=== PATIENT | female | born 2000 | race Caucasian/White ===

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

== ENCOUNTER 2021-05-05 11:22 | Emergency (ER) | payer BC, SELFPAY ==
[2021-05-05 11:34] VITALS: BP 121/68; PULSE 97; RESP 18; TEMP 36.2; O2SAT 100
--- NOTE | 2021-05-05 12:54 | ED.GENADULT ---
HPI - General Adult General Chief complaint: Unspecified Stated complaint: Covid-19 exposure Time Seen by Provider: 05/05/21 11:42 Source: patient Mode of arrival: ambulatory Limitations: no limitations History of Present Illness HPI narrative: This is a 20 year old female that presents to the ER for cold symptoms present over the last 2 days. Reports cough, congestion, rhinorrhea, and sore throat. Reports recent COVID exposure. She has vaccinated, has not received the booster. Denies fever, chest pain, shortness of breath. Related Data Home Medications Medication Instructions Recorded Confirmed drospirenone-ethinyl estradiol tablet 05/05/21 escitalopram oxalate mg 05/05/21 spironolactone 05/05/21 05/05/21 Allergies Allergy/AdvReac Type Severity Reaction Status Date / Time guaifenesin Allergy Unknown Unknown Verified 05/05/21 11:33 Review of Systems Review of Systems: CONSTITUTIONAL: Denies fever ENT: Reports rhinorrhea, congestion, sore throat CARDIOVASCULAR: Denies chest pain, or edema. RESPIRATORY: Reports cough. Denies dyspnea. All systems reviewed & are unremarkable except as noted in HPI and below PMFSH Past Medical History Medical History (Updated 05/05/21 @ 13:02 by Liv Walter PA-C) History of PCOS Social History Social History (Updated 05/05/21 @ 12:59 by Liv Walter PA-C) Smoking status: Never smoker Exam Narrative: GENERAL: Well-appearing, well-nourished, and in no acute distress. HEAD: Normocephalic, atraumatic. EYES: EOMI. ENT: Nares clear, no rhinorrhea or epistaxis. Mucous membranes moist. Oropharynx without tonsillar hypertrophy exudate or other lesions. Bilateral TMs pearly patterson non-bulging NECK: Supple. No adenopathy or masses. CHEST: Clear to auscultation. No respiratory distress. No wheezes rales or rhonchi HEART: Regular rate and rhythm. No murmur heard. Normal peripheral pulses. EXTREMITIES: Normal range of motion. No edema. SKIN: Warm, dry, no rash. NEURO: No focal deficits. Alert and oriented x3. PSYCH: Normal mood and affect Course Vital Signs Vital signs: Vital Signs Temperature 97.2 F L 05/05/21 11:34 Pulse Rate 97 05/05/21 11:34 Respiratory Rate 18 05/05/21 11:34 Blood Pressure 121/68 05/05/21 11:34 Pulse Oximetry 100 05/05/21 11:34 Temperature 97.2 F L 05/05/21 11:34 Pulse Rate 97 05/05/21 11:34 Respiratory Rate 18 05/05/21 11:34 Blood Pressure 121/68 05/05/21 11:34 Pulse Oximetry 100 05/05/21 11:34 Medical Decision Making MDM Narrative Medical decision making narrative: Patient presents emergency department for cold symptoms present x2 days. She is afebrile and nontoxic-appearing. Oxygen saturation is 100% on room air. Lungs are clear on exam. Influenza screen and strep screens are negative. SARS-CoV-2 was sent. Patient was instructed on continued care of viral infection. She is stable and felt appropriate for further outpatient evaluation. She was given warnings to return to the ER Vital Signs Vital Signs: Vital Signs Temperature 97.2 F L 05/05/21 11:34 Pulse Rate 97 05/05/21 11:34 Respiratory Rate 18 05/05/21 11:34 Blood Pressure 121/68 05/05/21 11:34 Pulse Oximetry 100 05/05/21 11:34 Temperature 97.2 F L 05/05/21 11:34 Pulse Rate 97 05/05/21 11:34 Respiratory Rate 18 05/05/21 11:34 Blood Pressure 121/68 05/05/21 11:34 Pulse Oximetry 100 05/05/21 11:34 Lab Data Lab results reviewed: Yes I reviewed the patient's lab results. Labs: Lab Results 05/05/21 Range/Units 12:12 SARS-CoV-2 RNA (RT-PCR) Pending Influenza A Screen Negative Reference Range: Negative Influenza B Screen Negative Reference Range: Negative Strep Screen Presumptive Negative *(Reference Range: Negative)*
[2021-05-05 13:17] LABS: SARS-CoV-2 RNA PCR Negative
== END 2021-05-05 13:15 | disposition home or self-care (01) ==
PROVIDERS: Physician Assistant; Emergency Provider Emergency Medicine
DX: B34.9 Viral infection, unspecified (principal); Z20.822 Contact with and (suspected) exposure to COVID-19; E28.2 Polycystic ovarian syndrome
CPT/HCPCS: 87081; 87804; 87880; 99283; C9803; U0003; U0005

== ENCOUNTER 2022-08-27 13:22 | Emergency (ER) | payer BC, SELFPAY ==
--- NOTE | ~2022-08-27 | XR_ITS ---
EXAMINATION: XR chest 2V DATE: 08/27/2022 13:48 INDICATION: Left anterior chest and left back pain. TECHNIQUE: PA and lateral views of the chest were obtained. COMPARISON: None FINDINGS: The lungs are clear with no focal airspace opacities, pulmonary edema, pleural effusion or pneumothor ax. The cardiomediastinal silhouette is normal. Visualized bones and soft tissues are unremarkable. IMPRESSION: 1. Normal chest radiograph. Reviewed, dictated and finalized at location A. IMPRESSION: 1. Normal chest radiograph.
[2022-08-27 13:29] VITALS: BP 122/61; PULSE 84; RESP 16; TEMP 36.6; O2SAT 99
--- NOTE | 2022-08-27 13:38 | ECG_ITS ---
Measurements Intervals Carey Rate: 78 P: 47 IN: 161 QRS: 30 QRSD: 79 T: 8 QT: 339 QTc: 387 Interpretive Statements SINUS RHYTHM BORDERLINE ST-T WAVE ABNORMALITY- INFERIOR LEADS BASELINE ARTIFACT- II, III, AVF BORDERLINE ECG NO PREVIOUS ECG AVAILABLE FOR COMPARISON Electronically Signed On 08-28-2022 6:27:31 CDT by Ephraim Estrella D.O.
--- NOTE | 2022-08-27 13:51 | ED.GENADULT ---
HPI - General Adult General Chief complaint: Upper Respiratory Infection Stated complaint: Left Shoulder/Back Chest Pain Source: patient Mode of arrival: ambulatory Limitations: no limitations History of Present Illness HPI narrative: PATIENT PRESENTS FOR EVALUATION BACK PAIN WITH RADIATION INTO LEFT SIDE OF THE CHEST THAT STARTED AROUND 11:00 A.M. THIS MORNING. SHE INDICATES SHE WAS STANDING IN LINE AT THE TIME OF SYMPTOM ONSET. PAIN HAS BEEN FAIRLY CONSTANT SINCE THAT TIME. NO HISTORY OF SIMILAR SYMPTOMS. SHE DENIES SOB AND COUGH. SHE STATES THAT DEEP INSPIRATION CAUSES PAIN TO INCREASE. SHE HAS TRIED TAKING IBUPROFEN FOR HER SYMPTOMS WITHOUT CONSIDERABLE IMPROVEMENT THEREAFTER. SHE APPLIED A HEATING PAD WHICH HELPED. HOWEVER HER PAIN RETURNED AFTER SHE REMOVED THE HEATING PAD. DENIES ANY OTHER INFECTIOUS SYMPTOMS INCLUDING BUT NOT LIMITED TO SORE THROAT, EAR PAIN. FEVER OR CHILLS. SHE DESCRIBES THE SENSATION A SPASM . SHE TAKES DEEPIKA OC. Related Data Home Medications Medication Instructions Recorded Confirmed drospirenone 3 mg-ethinyl tablet 05/05/21 estradiol 0.02 mg tablet escitalopram oxalate 5 mg tablet mg 05/05/21 spironolactone 100 mg tablet 05/05/21 05/05/21 dicyclomine 20 mg tablet mg 08/27/22 metformin 500 mg tablet,extended mg PO 08/27/22 release 24 hr Allergies Allergy/AdvReac Type Severity Reaction Status Date / Time guaifenesin Allergy Unknown Unknown Verified 05/05/21 11:33 Review of Systems Review of Systems: CONSTITUTIONAL: DENIES FEVER, CHILLS, OR SWEATS. EYES: DENIES VISUAL CHANGES, REDNESS, OR DISCHARGE. ENT: DENIES RHINORRHEA, CONGESTION, SORE THROAT, OR OTALGIA. CARDIOVASCULAR: DENIES CHEST PAIN, PALPITATIONS, OR EDEMA. RESPIRATORY: DENIES COUGH AND SHORTNESS OF BREATH. DEEP INSPIRATION CAUSES WORSENING BACK WELLS. GASTROINTESTINAL: DENIES ABDOMINAL PAIN, NAUSEA, VOMITING, OR DIARRHEA. GENITOURINARY: DENIES DYSURIA OR HEMATURIA. SKIN: DENIES RASH OR ITCHING. MUSCULOSKELETAL: REPORTS BACK PAIN WITH RADIATION TO LEFT SIDE OF THE CHEST NEUROLOGIC: DENIES HEADACHE, NUMBNESS, DIZZINESS, OR WEAKNESS. PSYCHIATRIC: DENIES ANXIETY OR DEPRESSION. [facility] Past Medical History Medical History History of PCOS Surgical History Surgical History History of hernia repair History of tonsillectomy Family History Family History Mother Family history non-contributory Social History Social History Smoking status: Never smoker Substance use: never Living arrangements: with family Gender identity (if verbalized by the patient): Female Spiritual care concerns: No Exam Narrative: GENERAL: WELL-APPEARING, WELL-NOURISHED, AND IN NO ACUTE DISTRESS. HEAD: NORMOCEPHALIC, ATRAUMATIC. EYES: PERRLA AND EOMI. ENT: NARES CLEAR, NO RHINORRHEA OR EPISTAXIS. MUCOUS MEMBRANES MOIST. OROPHARYNX WITHOUT TONSILLAR HYPERTROPHY EXUDATE OR OTHER LESIONS. BILATERAL TMS PEARLY LYLE NONBULGING NECK: SUPPLE. NO ADENOPATHY OR MASSES. NO CAROTID BRUITS OR JVD CHEST: CLEAR TO AUSCULTATION. NO RESPIRATORY DISTRESS. NO WHEEZES RALES OR RHONCHI HEART: REGULAR RATE AND RHYTHM. NO MURMUR HEARD. NORMAL PERIPHERAL PULSES. ABDOMEN: SOFT, NONTENDER, NONDISTENDED, NORMAL ACTIVE BOWEL SOUNDS. EXTREMITIES: NORMAL RANGE OF MOTION. NO EDEMA. BACK: THERE IS TENDERNESS OVER LEFT POSTERIOR RIBS. SKIN: WARM, DRY, NO RASH. NEURO: NO FOCAL DEFICITS. ALERT AND ORIENTED X3. PSYCH: NORMAL MOOD AND AFFECT. Course Course Emergency Course: THIS IS A 22-YEAR-OLD FEMALE WHO PRESENTED FOR EVALUATION OF PAIN IN HER BACK. CHEST X-RAY AND EKG WERE NORMAL. PAIN IS REPRODUCIBLE WITH PALPATION. LIKELY MUSCULOSKELETAL IN ORIGIN. SHE HAS EXPERIENCED RELIEF WITH APPLICATION OF HEA
== END 2022-08-27 14:14 | disposition home or self-care (01) ==
PROVIDERS: Emergency Provider Nurse Practitioner; PCP Nurse Practitioner Family
DX: M62.838 Other muscle spasm (principal); E28.2 Polycystic ovarian syndrome
CPT/HCPCS: 71046; 93005; 99213; G0463

== ENCOUNTER 2023-01-17 14:17 | Emergency (ER) | payer OTHER, SELFPAY ==
--- NOTE | ~2023-01-17 | XR_ITS ---
EXAMINATION: XR chest 2V DATE: 01/17/2023 14:57 INDICATION: Cough TECHNIQUE: PA and lateral views of the chest are obtained. COMPARISON: 08/27/2022 FINDINGS: The lungs are free of acute opacities. No pleural effusion or pneumothorax. The cardiomedia stinal silhouette is normal. The visualized bones and soft tissues are unremarkable. IMPRESSION: 1. No acute cardiopulmonary abnormality. Reviewed, dictated and finalized at location B.
[2023-01-17 14:29] VITALS: BP 122/72; PULSE 85; RESP 18; TEMP 36.8; O2SAT 98
[2023-01-17] MEDS: BENZONATATE 100 MG CAPSULE 200 MG PO (15:39)
[2023-01-17] MEDS: AZITHROMYCIN 250 MG TABLET 500 MG PO (15:39)
--- NOTE | 2023-01-17 15:48 | ED.GENADULT ---
HPI - General Adult General Chief complaint: Upper Respiratory Infection Stated complaint: cough Time Seen by Provider: 01/17/23 14:20 History of Present Illness HPI narrative: Dia Heller is a 22 y/o female who presents with reports of having a cough that has been consistent for the past 3 weeks, she states that it has been mostly dry and at times she coughs up a small amount of mucous. she denies any fever/chills. She has been tested for covid and flu and all were negative. She also states that she was treated for an ear infection from an a week ago. She also has not been taking her cough medication that was prescribed because she doesn't like to take medication Related Data Home Medications Medication Instructions Recorded Confirmed drospirenone 3 mg-ethinyl tablet 05/05/21 estradiol 0.02 mg tablet escitalopram oxalate 5 mg tablet mg 05/05/21 spironolactone 100 mg tablet 05/05/21 05/05/21 dicyclomine 20 mg tablet mg 08/27/22 metformin 500 mg tablet,extended mg PO 08/27/22 release 24 hr Allergies Allergy/AdvReac Type Severity Reaction Status Date / Time guaifenesin Allergy Unknown Unknown Verified 05/05/21 11:33 Review of Systems Review of Systems: CONSTITUTIONAL: Denies fever, chills, or sweats. EYES: Denies visual changes, redness, or discharge. ENT: Denies rhinorrhea, congestion, sore throat, or otalgia. CARDIOVASCULAR: Denies chest pain, palpitations, or edema. RESPIRATORY: Reports cough for 3 weeks without dyspnea. GASTROINTESTINAL: Denies abdominal pain, nausea, vomiting, or diarrhea. GENITOURINARY: Denies dysuria or hematuria. SKIN: Denies rash or itching. MUSCULOSKELETAL: Denies back pain, joint pain, or myalgia. NEUROLOGIC: Denies headache, numbness, dizziness, or weakness. PSYCHIATRIC: Denies anxiety or depression. [facility] Past Medical History Medical History History of PCOS Surgical History Surgical History History of hernia repair History of tonsillectomy Family History Family History Mother Family history non-contributory Social History Social History Smoking status: Never smoker Substance use: never Living arrangements: with family Gender identity (if verbalized by the patient): Female Spiritual care concerns: No Exam Narrative: GENERAL: Well-appearing, well-nourished, and in no acute distress. HEAD: Normocephalic, atraumatic. EYES: PERRLA and EOMI. ENT: Nares clear, no rhinorrhea or epistaxis. Mucous membranes moist. Oropharynx no tonsils present no exudate or other lesions. Bilateral TMs noted to have serous effusion bilaterally nonbulging NECK: Supple. No adenopathy or masses. No carotid bruits or JVD CHEST: Clear to auscultation. No respiratory distress. No wheezes rales or rhonchi HEART: Regular rate and rhythm. No murmur heard. Normal peripheral pulses. ABDOMEN: Soft, nontender, nondistended, normal active bowel sounds. EXTREMITIES: Normal range of motion. No edema. SKIN: Warm, dry, no rash. NEURO: No focal deficits. Alert and oriented x3. PSYCH: Normal mood and affect. Course Vital Signs Vital signs: Vital Signs Temperature 36.8 C 01/17/23 14:29 Pulse Rate 85 01/17/23 14:29 Respiratory Rate 18 01/17/23 14:29 Blood Pressure 122/72 01/17/23 14:29 Pulse Oximetry 98 01/17/23 14:29 Oxygen Delivery Room Air 01/17/23 14:29 Temperature 36.8 C 01/17/23 14:29 Pulse Rate 85 01/17/23 14:29 Respiratory Rate 18 01/17/23 14:29 Blood Pressure 122/72 01/17/23 14:29 Pulse Oximetry 98 01/17/23 14:29 Oxygen Delivery Room Air 01/17/23 14:29 Medical Decision Making MDM Narrative Medical decision making narrative: On exam pt's lungs are clear , TMs noted to have serous effusion bilaterall
[2023-01-17 16:05] LABS: Influenza A QL RT-PCR Negative (Negative); Influenza B QL RT-PCR Negative (Negative); RSV RNA, RT-PCR Negative (Negative); SARS-CoV-2 RNA PCR Negative (Negative)
[2023-01-17 16:20] VITALS: BP 120/75; PULSE 82; RESP 16; TEMP 36.4; O2SAT 99
== END 2023-01-17 16:20 | disposition home or self-care (01) ==
PROVIDERS: Emergency Provider Nurse Practitioner Family; PCP Nurse Practitioner Family
DX: J40 Bronchitis, not specified as acute or chronic (principal); E28.2 Polycystic ovarian syndrome; Z20.822 Contact with and (suspected) exposure to COVID-19
CPT/HCPCS: 71046; 87637; 99283; A9270

== ENCOUNTER 2023-01-29 16:22 | Emergency (ER) | payer OTHER, SELFPAY ==
--- NOTE | 2023-01-29 16:38 | ED.URI ---
HPI - URI/Sore Throat General Chief Complaint: Upper Respiratory Infection Stated Complaint: coughing/ears History of Present Illness HPI Narrative: PATIENT PRESENTS WITH BILATERAL EAR PAIN AND NASAL CONGESTION AND COUGH. NO FEVER NO SHORTNESS OF BREATH NO CHEST PAIN. PATIENT STATES SHE HAS BEEN RECENTLY ON AUGMENTIN FOR BILATERAL EAR INFECTION AND THEN A Z-VIOLET. PATIENT STATES SHE IS NOT TAKING ANYTHING [id number] FOR HER SYMPTOMS. Related Data Home Medications Medication Instructions Recorded Confirmed drospirenone 3 mg-ethinyl tablet 05/05/21 estradiol 0.02 mg tablet escitalopram oxalate 5 mg tablet mg 05/05/21 spironolactone 100 mg tablet 05/05/21 05/05/21 metformin 500 mg tablet,extended mg PO 08/27/22 release 24 hr Allergies Allergy/AdvReac Type Severity Reaction Status Date / Time guaifenesin Allergy Unknown Unknown Verified 05/05/21 11:33 Review of Systems Review of Systems: CONSTITUTIONAL: DENIES CHILLS, OR SWEATS. REPORTS FEVER AND GENERALIZED BODY ACHES EYES: DENIES VISUAL CHANGES, REDNESS, OR DISCHARGE. ENT: DENIES OTALGIA. REPORTS NASAL CONGESTION RUNNY NOSE AND SORE THROAT CARDIOVASCULAR: DENIES CHEST PAIN, PALPITATIONS, OR EDEMA. RESPIRATORY: DENIES DYSPNEA. REPORTS OCCASIONAL COUGH GASTROINTESTINAL: DENIES ABDOMINAL PAIN, NAUSEA, VOMITING, OR DIARRHEA. GENITOURINARY: DENIES DYSURIA OR HEMATURIA. SKIN: DENIES RASH OR ITCHING. MUSCULOSKELETAL: DENIES BACK PAIN, JOINT PAIN, OR MYALGIA. REPORTS GENERALIZED BODY ACHES NEUROLOGIC: DENIES HEADACHE, NUMBNESS, OR WEAKNESS. PSYCHIATRIC: DENIES ANXIETY OR DEPRESSION. [facility] Past Medical History Medical History History of PCOS Surgical History Surgical History History of hernia repair History of tonsillectomy Family History Family History Mother Family history non-contributory Social History Social History Smoking status: Never smoker Substance use: never Living arrangements: with family Gender identity (if verbalized by the patient): Female Spiritual care concerns: No Comments AT TIME OF SIGNATURE, AGREE WITH NURSING PAST MEDICAL, SURGICAL, SOCIAL AND FAMILY HISTORY. THERE IS NO RELEVANT FAMILY HISTORY PERTINENT TO THE PRESENTING COMPLAINT Exam Narrative: THE PATIENT IS A WELL-DEVELOPED, WELL-NOURISHED IN NO ACUTE DISTRESS. SKIN: SKIN IS WARM AND DRY WITHOUT ERYTHEMA, SWELLING OR EXUDATE. THERE IS GOOD TURGOR. NO TENTING. HEAD: ATRAUMATIC. NORMOCEPHALIC. NO TEMPORAL OR SCALP TENDERNESS. EYES: MOIST AND BRIGHT. SCLERA AND CONJUNCTIVAE NORMAL. NO DISCHARGE. PERRLA. EXTRAOCULAR MOTIONS INTACT. GROSS VISUAL ACUITY INTACT. EARS: PINNA IS NORMAL SHAPE AND CONTOUR. CLEAR EXTERNAL AUDITORY CANALS. TM PEARLY CAMPBELL WITH GOOD CONE OF LIGHT, NO ERYTHEMA OR SUPPURATION. BILATERAL CERUMEN NOTED NO GROSS HEARING DEFICIT. NOSE: PINK, MOIST MUCOSA WITH GOOD AIR MOVEMENT. CLEAR RHINORRHEA WITHOUT NASAL FLARING. SEPTUM MIDLINE. MOUTH: MOIST MUCOUS MEMBRANES. THROAT; MILD ERYTHEMA NOTED TO POSTERIOR OROPHARYNX WITH MODERATE POSTNASAL DRAINAGE. WITHOUT EXUDATE OR ULCERATION.. UVULA MIDLINE. NORMAL MOVEMENT OF SOFT PALATE. NECK: SUPPLE AND NONTENDER WITH FULL RANGE OF MOTION WITHOUT DISCOMFORT. NO MENINGEAL SIGNS. LUNGS: EQUAL AND BILATERAL BREATH SOUNDS WITHOUT WHEEZES, RALES OR RHONCHI. CHEST: THE CHEST WALL IS WITHOUT RETRACTIONS OR USE OF ACCESSORY MUSCLES. HEART: HAS A REGULAR RATE AND RHYTHM WITHOUT MURMUR, GALLOPS, CLICK OR RUB. ABDOMEN: SOFT, NONTENDER WITH POSITIVE ACTIVE BOWEL SOUNDS. NO REBOUND TENDERNESS. EXTREMITIES: WITHOUT CYANOSIS, CLUBBING OR EDEMA. EQUAL 2+ DISTAL PULSES AND 2 SECOND CAPILLARY REFILL NOTED. NEUROLOGIC: ALERT, ACTIVE, . THE PATIENT MOVES ALL EXTREMITIES WITH NORMAL MUSCLE STRENGTH. NORMAL MUSCLE T
[2023-01-29 16:52] VITALS: BP 129/68; PULSE 95; RESP 16; TEMP 36.7; O2SAT 100
== END 2023-01-29 16:58 | disposition home or self-care (01) ==
PROVIDERS: Emergency Provider Nurse Practitioner Family; PCP Nurse Practitioner Family
DX: H69.92 Unspecified Eustachian tube disorder, left ear (principal); J06.9 Acute upper respiratory infection, unspecified
CPT/HCPCS: 99213; G0463

== ENCOUNTER 2023-05-09 19:15 | Emergency (ER) | payer OTHER, SELFPAY ==
[2023-05-09 19:20] VITALS: BP 104/68; PULSE 114; RESP 20; TEMP 37.2; O2SAT 99
--- NOTE | 2023-05-09 19:22 | ED.GENADULT ---
HPI - General Adult General Stated complaint: sinus headache/fever/chest congest Source: patient, RN notes reviewed and old records reviewed Mode of arrival: ambulatory Limitations: no limitations History of Present Illness HPI narrative: 22-year-old female presents to [facility] with complaints fever, myalgia, fatigue, congestion, scratchy throat, bilateral ear pressure this started last p.m. Patient taking [id number] medications with no relief. MD complaint: Fever Onset (ago): day(s) (1) Related Data Home Medications Medication Instructions Recorded Confirmed spironolactone 100 mg tablet 100 mg PO DAILY 05/05/21 05/09/23 metformin 500 mg tablet,extended 500 mg PO DAILY 08/27/22 05/09/23 release 24 hr ferrous gluconate 324 mg (38 mg 324 mg PO BID 05/09/23 05/09/23 iron) tablet norethindrone 1 mg-ethinyl 1 tablet PO DAILY 05/09/23 05/09/23 estradiol 20 mcg (21)-iron 75 mg (7) tablet (Blisovi Fe 05/19 (28)) pantoprazole 40 mg tablet,delayed 40 mg PO DAILY 05/09/23 05/09/23 release Allergies Allergy/AdvReac Type Severity Reaction Status Date / Time guaifenesin Allergy Unknown Unknown Verified 05/09/23 19:34 Review of Systems Constitutional: Constitutional: Reports no additional constitutional complaints, Reports body ache(s), Denies chills, Reports fatigue, Reports fever(s) and Reports headache(s) Eyes: Eyes: Reports no additional eye complaints and Denies blurry vision ENT: Reports system reviewed and no additional complaints, except as documented, Denies vertigo, Denies dizziness, Denies ear discharge, Reports otalgia, Denies facial pain, Denies headache(s), Reports nasal congestion, Reports nasal discharge, Denies sinus pain, Denies sinus pressure and Reports sore throat Cardiovascular: Cardiovascular: Reports no additional cardiovascular complaints, Denies chest pain, Denies chest pain at rest, Denies rapid heart rate and Denies dyspnea Respiratory: Respiratory: Reports no additional respiratory complaints, Denies chest congestion, Reports cough, Denies pain on inspiration, Denies pain with cough and Denies dyspnea Gastrointestinal: Gastrointestinal: Denies abdominal pain, Denies diarrhea, Denies nausea and Denies vomiting Integumentary/Breasts: Skin/Breast: Denies rash Neurologic: Reports system reviewed and no additional complaints, except as documented, Denies vertigo, Denies dizziness and Denies headache(s) Endocrine: Endocrine: Denies fatigue PMFSH Past Medical History Medical History History of PCOS Surgical History Surgical History History of hernia repair History of tonsillectomy Family History Family History Mother Family history non-contributory Social History Social History Smoking status: Never smoker Substance use: never Living arrangements: with family Gender identity (if verbalized by the patient): Female Spiritual care concerns: No Comments At the time of my signature, I reviewed and agree with the nursing past medical, surgical, social, and family history. There is no relevant family history pertinent to the patient complaint. Exam Const: General: cooperative, healthy appearing, no acute distress and well nourished Nutritional Appearance: well nourished Orientation/consciousness: patient oriented x3 Limitations: no limitations HENMT: Head: normal to inspection and normocephalic Ears: external ears normal, TM's normal bilaterally, mastoids normal and Abnormal EAC present Face/Nose/Sinus: normal facial exam Face and sinus: normal facial exam Mouth: Yes Normal oral and palatal mucosa present, Yes oropharynx normal and Yes moist mucous membranes Throat: tonsils normal, uvula midline and no uvular edema Eyes: General: appeara
== END 2023-05-09 19:40 | disposition home or self-care (01) ==
PROVIDERS: Emergency Provider Registered Nurse; PCP Nurse Practitioner Family
DX: J10.1 Influenza due to other identified influenza virus with other respiratory manifestations (principal); Z79.899 Other long term (current) drug therapy; Z79.84 Long term (current) use of oral hypoglycemic drugs; Z20.822 Contact with and (suspected) exposure to COVID-19
CPT/HCPCS: 87426; 87804; 99213; G0463

== ENCOUNTER 2023-06-04 10:07 | Emergency (ER) | payer OTHER, SELFPAY ==
--- NOTE | ~2023-06-04 | CT_ITS ---
EXAMINATION: CT brain wo con DATE: 06/04/2023 11:37 INDICATION: Headache TECHNIQUE: Computed tomography (CT) of the head was performed without intravenous contrast. The mA wa s adjusted according to patient size. Iterative reconstruction technique was employed. Exam dose: 83 2.33 mGy-cm total exam DLP. COMPARISON: None FINDINGS: Examination is limited due to motion artifact despite some repeat images. No intracranial mass lesion or hemorrhage or cerebrovascular accident, midline shift or mass effect i s evident. Normal ventricular size. No subdural or epidural hematoma is detected. No apparent skull fracture. Included paranasal sinuses and the mastoid air cells are unremarkable. IMPRESSION: Limited examination due to motion artifact; no acute intracranial finding is evident Reviewed, dictated and finalized at [facility]. Reviewed, dictated and finalized at location [facility]. [employer]
[2023-06-04 10:27] VITALS: BP 139/73; PULSE 88; RESP 16; TEMP 36.8; O2SAT 99
[2023-06-04] MEDS: PROCHLORPERAZINE EDISYLATE 10 MG/2 ML VIAL IV PUSH (11:57)
[2023-06-04] MEDS: diphenhydrAMINE HCl INJ 50 MG/ML VIAL 25 MG IV PUSH (11:57)
[2023-06-04] MEDS: SODIUM CHLORIDE 0.9% IV 1,000 ML 999 ML IV CONT (11:58)
--- NOTE | 2023-06-04 13:06 | ED.GENADULT ---
HPI - General Adult General Chief complaint: Headache Stated complaint: HEADACHE [id number] Time Seen by Provider: 06/04/23 11:12 History of Present Illness HPI narrative: 22-year-old female presenting the emergency department for evaluation intermittent headache. Patient reports over the last 3 weeks she has had intermittent headache. Patient states that initially started on the left and then moved to the right. Patient does describe a fullness in her ears. Patient denies any associated numbness or weakness. Patient denies any falls or injuries. Patient denies any fevers or illness. Related Data Home Medications Medication Instructions Recorded Confirmed spironolactone 100 mg tablet 100 mg PO DAILY 05/05/21 05/09/23 metformin 500 mg tablet,extended 500 mg PO DAILY 08/27/22 05/09/23 release 24 hr ferrous gluconate 324 mg (38 mg 324 mg PO BID 05/09/23 05/09/23 iron) tablet norethindrone 1 mg-ethinyl 1 tablet PO DAILY 05/09/23 05/09/23 estradiol 20 mcg (21)-iron 75 mg (7) tablet (Blisovi Fe 05/19 (28)) pantoprazole 40 mg tablet,delayed 40 mg PO DAILY 05/09/23 05/09/23 release Allergies Allergy/AdvReac Type Severity Reaction Status Date / Time guaifenesin Allergy Unknown Unknown Verified 05/09/23 19:34 Review of Systems Review of Systems: All systems reviewed & are unremarkable except as noted in HPI and below PMFSH Past Medical History Medical History History of PCOS Surgical History Surgical History History of hernia repair History of tonsillectomy Family History Family History Mother Family history non-contributory Social History Social History Smoking status: Never smoker Substance use: never Living arrangements: with family Gender identity (if verbalized by the patient): Female Spiritual care concerns: No Exam Narrative: APPEARANCE: Well appearing, no pain, no distress, well-nourished. HEAD: normocephalic, atraumatic. EYES: PERRLA/EOMI, conjunctivae clear. NOSE: Normal no drainage EARS:TMS clear with good light reflex. THROAT: Pharynx clear, no exudate. NECK: Supple. No adenopathy, no masses. RESPIRATORY: Airway patent, respirations nonlabored. Clear to auscultation bilaterally, no rales, rhonchi, wheezing. CARDIOVASCULAR: Regular rate and rhythm without murmurs rubs or gallops. ABDOMINAL: Soft, nontender, nondistended, normal bowel sounds MUSCULOSKELETAL: Moves all extremities. Strength/ROM intact, No edema, No calf tenderness. NEURO: Alert. Cranial nerves II through XII intact. Normal strength reflexes, no ataxia, no drift, negative Romberg, normal for him backward tandem gait SKIN: Warm, dry. Normal Color PSYCHIATRIC: Normal affect/mood. Course Course Emergency Course: 22-year-old female present to the emergency department for evaluation for headache. Head CT was negative and patient did feel improved with treatment. Patient was encouraged to have close follow-up with her primary care physician. All questions concerns were addressed. Vital Signs Vital signs: Vital Signs Temperature 98.2 F 06/04/23 10:27 Pulse Rate 88 06/04/23 10:27 Respiratory Rate 16 06/04/23 10:27 Blood Pressure 139/73 06/04/23 10:27 Pulse Oximetry 99 06/04/23 10:27 Oxygen Delivery Room Air 06/04/23 10:27 Temperature 98.2 F 06/04/23 10:27 Pulse Rate 102 H 06/04/23 13:42 Respiratory Rate 18 06/04/23 13:42 Blood Pressure 116/65 06/04/23 13:42 Pulse Oximetry 100 06/04/23 13:42 Oxygen Delivery Room Air 06/04/23 10:27 Medical Decision Making Differential Diagnosis Differential Diagnosis: Tension headache, migraine, intracranial abnormality, acute headache Vital Signs Vital Signs: Vital Signs Temperature 98.2 F
[2023-06-04 13:42] VITALS: BP 116/65; PULSE 102; RESP 18; O2SAT 100
== END 2023-06-04 13:25 | disposition home or self-care (01) ==
PROVIDERS: Emergency Provider Emergency Medicine; PCP Nurse Practitioner Family
DX: R51.9 Headache, unspecified (principal); E28.2 Polycystic ovarian syndrome
CPT/HCPCS: 70450; 81025; 96361; 96374; 96375; 99284; J0780; J1200; J7030

== ENCOUNTER 2023-07-16 10:28 | Emergency (ER) | payer OTHER, SELFPAY ==
[2023-07-16 10:35] VITALS: BP 133/79; PULSE 114; RESP 16; TEMP 37.6; O2SAT 99
--- NOTE | 2023-07-16 10:58 | ED.URI ---
HPI - URI/Sore Throat General Chief Complaint: Upper Respiratory Infection Stated Complaint: flu symptoms Time Seen by Provider: 07/16/23 10:50 Source: patient, RN notes reviewed and old records reviewed Mode of arrival: ambulatory Limitations: no limitations History of Present Illness HPI Narrative: 22 year old female who presents to [facility] care with complaints of runny nose nasal congestion and fever up to 100.5 since Sunday. Patient reports that that she has been taking Sudafed and Ibuprofen for her symptoms. Patient reports that she had the flu in April and she works in a day care setting. MD elicited complaint: fever, cough, rhinorrhea, nasal congestion and sinus pain Onset (ago): day(s) (4) Pain scale (0-10): 3 Description of mucous: clear Able to tolerate fluids by mouth: Yes Treatments prior to arrival: ibuprofen and other (Sudafed) Related Data Home Medications Medication Instructions Recorded Confirmed ferrous gluconate 324 mg (38 mg 324 mg PO BID 05/09/23 07/16/23 iron) tablet norethindrone 1 mg-ethinyl 1 tablet PO DAILY 05/09/23 07/16/23 estradiol 20 mcg (21)-iron 75 mg (7) tablet ([place] Fe 05/19 (28)) escitalopram oxalate 5 mg tablet 5 mg PO DAILY 07/16/23 07/16/23 Allergies Allergy/AdvReac Type Severity Reaction Status Date / Time guaifenesin Allergy Unknown Unknown Verified 05/09/23 19:34 Review of Systems Review of Systems: CONSTITUTIONAL: Reports malaise, chills, sweats, or fever. EYES: Denies visual changes, redness, or discharge. ENT: Reports rhinorrhea, congestion, sinus pain,no otalgia and no sore throat. CARDIOVASCULAR: Denies chest pain, palpitations, or edema. RESPIRATORY: Reports occasional cough.? Denies dyspnea. GASTROINTESTINAL: Denies abdominal pain, nausea, vomiting, diarrhea SKIN: Denies rash or itching. MUSCULOSKELETAL: Denies myalgia. NEUROLOGIC: Denies headache. All systems reviewed & are unremarkable except as noted in HPI and below PMFSH Past Medical History Medical History History of PCOS Surgical History Surgical History History of hernia repair History of tonsillectomy Family History Family History Mother Family history non-contributory Social History Social History Smoking status: Never smoker Substance use: never Living arrangements: with family Gender identity (if verbalized by the patient): Female Spiritual care concerns: No Comments At time of signature, agree with nursing past medical, surgical, social and family history. There is no relevant family history pertinent to the presenting complaint Exam Narrative: GENERAL: Well-appearing, well-nourished, and in no acute distress. HEAD: Normocephalic EYES: PERRLA, conjunctivae clear ENT: Nares clear, turbinates edematous and erythematous, clear discharge. Mucous membranes moist. TM pearly patterson with dull light reflex bilaterally; no tragal tenderness. Oropharynx erythematous without lesions. Tonsils not present and throat without exudate, no drooling, no hoarseness, no trismus, uvula midline, post nasal drainage. NECK: Supple. No lymphadenopathy CHEST: Clear to auscultation, breath sounds equal. No wheezing, rhonchi, rales, or stridor. No respiratory distress, speaks in full sentences. SAO2 99% on room air HEART: Regular rate and rhythm. No murmur heard. SKIN: Warm, dry, no rash. NEURO: Alert and oriented x3. PSYCH: Normal mood and affect Course Course Emergency Course: Patient is aware of diagnosis, understands and agrees to treatment plan.? Anticipatory guidance given.? Patient agrees to follow-up as directed and is aware of reasons to seek care at the emergency department. Portions of this record may have been created wit
== END 2023-07-16 11:20 | disposition home or self-care (01) ==
PROVIDERS: Emergency Provider Registered Nurse; PCP Nurse Practitioner Family
DX: J06.9 Acute upper respiratory infection, unspecified (principal); Z20.822 Contact with and (suspected) exposure to COVID-19; E28.2 Polycystic ovarian syndrome
CPT/HCPCS: 87426; 87804; 99213; G0463

== ENCOUNTER 2024-03-10 16:09 | Emergency (ER) | payer OTHER, SELFPAY ==
[2024-03-10 16:14] VITALS: BP 136/68; PULSE 106; RESP 18; TEMP 36.9; O2SAT 100
--- NOTE | 2024-03-10 16:18 | ED_ITS ---
HPI - Female Genitourinary General Chief complaint: Abdominal Pain Stated complaint: Pain in lower back and right side Source: patient and RN notes reviewed Mode of arrival: ambulatory Limitations: no limitations History of Present Illness HPI Narrative: 23 y/o female presented for c/o abdominal cramping to right abdomen x5 days. Now radiating to the right mid back today. Reports one week prior to onset she had d iarrhea which has resolved. Taking gas X; has not taken anything for pain. denies hematuria, nausea, vomiting, constipation, fevers or chills. LBM today, normal. Related Data Home Medications Medication Instructions Recorded Confirmed ferrous gluconate 324 mg (38 mg 324 mg PO BID 05/09/23 03/10/24 iron) tablet escitalopram oxalate 5 mg tablet 5 mg PO DAILY 07/16/23 03/10/24 Allergies Allergy/AdvReac Type Severity Reaction Status Date / Time guaifenesin Allergy Unknown Unknown Verified 03/10/24 16:35 Review of Systems Review of Systems: CONSTITUTIONAL: Denies body aches, fever, chills, or sweats. CARDIOVASCULAR: Denies chest pain, palpitations, or edema. RESPIRATORY: Denies cough or dyspnea. GASTROINTESTINAL: reports abdominal pain, Denies nausea, vomiting, or diarrhea. GENITOURINARY:denies dysuria, frequency, urgency, hematuria, reports flank pain SKIN: Denies rash PMFSH Past Medical History Medical History History of PCOS Surgical History Surgical History History of hernia repair History of tonsillectomy Family History Family History Mother Family history non-contributory Social History Social History Smoking status: Never smoker Substance use: never Living arrangements: with family Gender identity (if verbalized by the patient): Female Spiritual care concerns: No Comments At time of signature, I have reviewed and agree with nursing past medical, surgical, social and family history unless otherwise noted. Please see nursing chart for further information. There is no relevant family history pertinent to the presenting complaint Exam Narrative: GENERAL: Well-appearing ENT: Mucous membranes pink and moist. CHEST: No respiratory distress. Clear to auscultation. HEART: Regular rate and rhythm. ABDOMEN: Soft, nondistended, normal active bowel sounds. Mild right CVA tenderness, RUQ and RLQ abdominal tenderness with palpation. SKIN: Warm, dry, no rash. NEURO: No focal deficits. Alert and oriented x3. Gait steady. PSYCH: Normal affect. Course Course Emergency Course: Patient is aware of diagnosis, understands and agrees to treatment plan. Anticipatory guidance given. Patient agrees to follow-up as directed and is aware of reasons to seek care at the emergency department. Portions of this record may have been created with voice recognition software Level of Care: Express Care Visit Vital Signs Vital signs: Reviewed Transfer Transfered to: [facility] Transportation: Other ( Private vehicle) Transfer rationale: Pt is agreeable to transfer. Requests transfer to [facility] via private vehicle. Risks of transportation reviewed with pt including injury, worsening of condition and . v/u. will be driving pt; Report called to hospital, spoke with Romi JOSEPH, accepting physician. Pt is in stable condition at time of transfer. Advised to remain NPO and go directly to the hospital. MDM - Female Genitourinary MDM Narrative Medical decision making narrative: Patient reports abdominal pain and flank pain, Urine neg, neg preg. Pt elects to transfer to ER at this time for further evaluation. Differential Diagnosis Differential diagnosis: Likely urinary tract infection and other (renal colic, renal stone, pyelonephritis, musculoskeletal strain, gallbladder disease, PUD, appendicitis, pancreatitis, hepatitis, pyelonephritis, renal stone, GERD, bowel obstruction, ) Discharge Plan Discharge Clinical Impression: Abdominal pain Patient Disposition: Acute Care Hospital Condition: Stable Prescriptions: No Action ferrous gluconate 324 mg (38 mg iron) tablet 324 mg PO BID escitalopram oxalate 5 mg tablet 5 mg PO DAILY Follow-up/Referrals: Ramon,Annette Owen APRN [Primary Care Provider] - Time of Disposition: 17:05
[2024-03-10 16:38] LABS: BEDSIDEPREGUCG Negative (Negative); EDUAAPPEAR Clear; EDUABILI Negative (Negative); EDUABLOOD Negative (Negative); EDUACOLOR1 Yellow; EDUAGLUCOSE Negative (Negative); EDUAKETONE Negative (Negative); EDUALEUKO Negative (Negative); EDUANITRATE Negative (Negative); EDUAPH 6.5; EDUAPROTEIN Negative (Negative); EDUASPGRAVITY 1.025
== END 2024-03-10 17:00 | disposition short-term general hospital (02) ==
PROVIDERS: Emergency Provider Nurse Practitioner Family; PCP Nurse Practitioner Family
DX: R10.11 Right upper quadrant pain (principal); R10.12 Left upper quadrant pain; R10.9 Unspecified abdominal pain; E28.2 Polycystic ovarian syndrome
CPT/HCPCS: 81003; 81025; 87086; 99213; G0463

== ENCOUNTER 2024-03-10 17:45 | Emergency (ER) | payer OTHER, SELFPAY ==
--- NOTE | ~2024-03-10 | CT_ITS ---
CLINICAL INDICATION: Upper abdominal pain radiating to the right flank COMPARISON: None. TECHNIQUE: Multiple contiguous axial images of the abdomen and pelvis were performed following the ad ministration of with 100 mL Omnipaque-350 intravenous contrast The dose-length product (DLP) was 501.68 mGy-cm. Automated exposure control and iterative reconstruction technique were employed. FINDINGS/OBSERVATIONS: Visualized lower thorax: Multiple pulmonary nodules are identified. 4.4 mm, right middle lobe (axial series, image 11). 5.7 mm, superior segment right lower lobe (axial series, image 23) possibly an intrafissural lymph no de. 5.8 mm, right middle lobe (axial series, image 5). The remainder of the lung bases are clear. The heart is of normal size, without pericardial effusion. Liver: The liver is enlarged measuring 19 cm in longitudinal dimension. Decreased attenuation suggesting fatty infiltration. Gallbladder and biliary system: The gallbladder is only minimally distended, and otherwise unremarkable. Pancreas: The pancreas enhances homogeneously without ductal dilatation. Spleen: The spleen enhances homogeneously and is not enlarged measuring 8 cm in longitudinal dimension. Kidneys: The bilateral kidneys enhance symmetrically without hydronephrosis or renal calculi. Adrenal glands: Unremarkable. Gastrointestinal tract: Mild fecal stasis. Appendix: The air-filled appendix is of normal caliber (axial series, images 116-126) Vasculature: Unremarkable. Lymph nodes: Multiple prominent lymph nodes within the retroperitoneum and at the root of the mesentery, a nonspec ific finding in a patient of this age. Pelvic structures: The bladder is minimally distended, and otherwise unremarkable. The bilateral ovaries are enlarged, and demonstrate decreased attenuation. The right ovary measures 4 .6 x 3.3 x 5 cm. The left ovary measures 4.2 x 3.5 x 5 cm. The uterus is anteverted and anteflexed. Body wall and musculoskeletal: No significant degenerative disease within the lower thoracic or lumbosacral spine. IMPRESSION: Fatty infiltration of an enlarged liver. Findings within the bilateral ovaries for which ultrasound is recommended. No obstructive uropathy. Reviewed, dictated and finalized at location [facility]. [employer] [employer]
--- NOTE | ~2024-03-10 | US_ITS ---
EXAM: PELVIC ULTRASOUND HISTORY: Abnormal CT. COMPARISON: CT examination of the abdomen and pelvis dated 03/10/2024 FINDINGS: UTERUS: 7.2 x 3.7 x 4.2 cm. The uterus is anteverted and anteflexed. The endometrial complex measures 5 mm. RIGHT OVARY: The right ovary is within the upper limits of normal for size measuring 4.4 x 3.1 x 3.7 cm. Arterial and venous flow are identified. Multiple follicles are present, consistent with patient's history of PCOS. LEFT OVARY: The left ovary is within the upper limits of normal for size measuring 4.9 x 2.3 x 3.6 cm Both arterial and venous flow are identified. Multiple follicles are present, consistent with patient's history of PCOS. No free fluid is identified within the pelvis. IMPRESSION: Findings consistent with patient's history of PCOS, as detailed above Reviewed, dictated and finalized at location A. [employer]
[2024-03-10 17:46] VITALS: BP 138/70; PULSE 112; RESP 16; TEMP 36.9; O2SAT 100
[2024-03-10 18:19] LABS: BEDSIDEPREGUCG Negative (Negative)
[2024-03-10 18:23] LABS: Basophils Percent Auto 0.4 % (0.2-1.2); Eosinophils Absolute Auto 0.2 K/mm3 (0-0.3); Eosinophils Percent Auto 1.4 % (0-4.4); Hematocrit 42.9 % (37.0-47.0); Hemoglobin 14.8 g/dL (12.0-15.0); Immature Granulocyte Absolute 0.03 K/mm3 (0.00-0.031); Immature Granulocyte Percent A 0.3 % (0-0.5); Lymphocytes Absolute Auto 2.72 K/mm3 (0.9-3.2); Lymphocytes Percent Auto 25.4 % (18.3-44.2); Mean Corpuscular HGB Conc 34.5 g/dl (32-36); Mean Corpuscular Hemoglobin 27.8 pg (26-34); Mean Corpuscular Volume 80.5 fl (80-100); Mean Platelet Volume 9.6 fl (7.4-10.4); Monocytes Absolute Auto 0.6 K/mm3 (0.1-0.6); Neutrophils Absolute Auto 7.1 K/mm3 (1.3-6.7); Neutrophils Percent Auto 66.5 % (45.5-73.1); Platelet Count Result 310 k/mm3 (150-375); Red Blood Count 5.33 M/mm3 (4.2-5.4); Red Cell Distribution Width 13.3 % (11.5-14.5); White Blood Count 10.7 K/mm3 (4.5-10.0)
[2024-03-10 18:25] LABS: Add Urine Microscopic? NO; Appearance Urine Clear (Clear); Bilirubin Urine Negative (Negative); Blood Urine Negative (Negative); Color Urine Yellow (Yellow); Glucose Urine UA Negative (Negative); Ketones Urine Negative (Negative); Leukocyte Esterase Ur Negative LEU/UL (Negative); Nitrate Urine Negative (Negative); Protein Urine Negative (Negative); Specific Grav Ur 1.004 (1.001-1.035); Urobilinogen Urine 0.2 mg/dL (<2.0)
[2024-03-10 18:33] LABS: Alanine Aminotransferase 80 U/L (6-35); Albumin Level 4.7 g/dL (3.5-5.1); Alkaline Phosphatase 108 U/L (38-126); Anion Gap 12 mmol/L (4-12); Aspartate Amino Transferase 45 U/L (14-36); Bilirubin,Total 1.1 mg/dL (0.2-1.3); Blood Urea Nitrogen 11 mg/dL (7-17); Calcium 9.2 mg/dL (8.4-10.2); Carbon Dioxide 24 mmol/L (22-30); Chloride 105 mmol/L (98-107); Estimated CRCL calculation 90 ml/min; Estimated Glomerular Filt Rate > 60; Glucose 109 mg/dL (65-110); Lipase 107 U/L (23-300); Potassium 3.6 mmol/L (3.4-5.0); Sodium 141 mmol/L (137-145)
--- NOTE | 2024-03-10 19:51 | ED.GENADULT ---
HPI - General Adult General Chief complaint: Abdominal Pain Stated complaint: abd pain Time Seen by Provider: 03/10/24 18:17 History of Present Illness HPI narrative: patient is a 23-year-old female presents emergency department chief complaint of abdominal pain. Patient reports that she has had a stomach flu recently and had diarrhea patient reports that she now has pain in the right flank area and reports that she has abdominal cramping. The patient states her pain is doing better at this time but reports that she is concerned Related Data Home Medications Medication Instructions Recorded Confirmed ferrous gluconate 324 mg (38 mg 324 mg PO BID 05/09/23 03/10/24 iron) tablet escitalopram oxalate 5 mg tablet 5 mg PO DAILY 07/16/23 03/10/24 Allergies Allergy/AdvReac Type Severity Reaction Status Date / Time guaifenesin Allergy Unknown Unknown Verified 03/10/24 16:35 Review of Systems Review of Systems: A 10 system review of systems was completed on the patient and is negative except for what is stated in the HPI. Nursing and ancillary documentation was reviewed. [facility] Past Medical History Medical History History of PCOS Surgical History Surgical History History of hernia repair History of tonsillectomy Family History Family History Mother Family history non-contributory Social History Social History Smoking status: Never smoker Substance use: never Living arrangements: with family Gender identity (if verbalized by the patient): Female Spiritual care concerns: No Exam Narrative: GENERAL: Well-appearing, well-nourished, and in no acute distress. HEAD: Normocephalic, atraumatic. EYES: PERRLA and EOMI. ENT: Nares clear, no rhinorrhea or epistaxis. Mucous membranes moist. NECK: Supple. CHEST: Clear to auscultation. No respiratory distress. HEART: Regular rate and rhythm. No murmur heard. Normal peripheral pulses. ABDOMEN: Soft, nontender, nondistended, normal active bowel sounds. EXTREMITIES: Normal range of motion. No edema. SKIN: Warm, dry, no rash. NEURO: No focal deficits. Alert and oriented x3. PSYCH: Normal mood and affect. Course Vital Signs Vital signs: Vital Signs Temperature 36.9 C 03/10/24 17:46 Pulse Rate 112 H 03/10/24 17:46 Respiratory Rate 16 03/10/24 17:46 Blood Pressure 138/70 03/10/24 17:46 Pulse Oximetry 100 03/10/24 17:46 Temperature 36.6 C 03/10/24 20:29 Pulse Rate 117 H 03/10/24 20:29 Respiratory Rate 16 03/10/24 20:29 Blood Pressure 121/72 03/10/24 20:29 Pulse Oximetry 100 03/10/24 20:29 Medical Decision Making MDM Narrative Medical decision making narrative: differential diagnosis includes abdominal infection, gastritis, colitis, appendicitis, ovarian torsion CT scan of the abdomen pelvis showed irregularly reviews of the ovaries and demonstrated fatty infiltration of liver. Vital Signs Vital Signs: Vital Signs Temperature 36.9 C 03/10/24 17:46 Pulse Rate 112 H 03/10/24 17:46 Respiratory Rate 16 03/10/24 17:46 Blood Pressure 138/70 03/10/24 17:46 Pulse Oximetry 100 03/10/24 17:46 Temperature 36.6 C 03/10/24 20:29 Pulse Rate 117 H 03/10/24 20:29 Respiratory Rate 16 03/10/24 20:29 Blood Pressure 121/72 03/10/24 20:29 Pulse Oximetry 100 03/10/24 20:29 Lab Data 03/10/24 18:15 03/10/24 18:15 Labs: Lab Results 03/10/24 03/10/24 Range/Units 18:15 18:18 WBC 10.7 H (4.5-10.0) K/mm3 RBC 5.33 (4.2-5.4) M/mm3 Hgb 14.8 (12.0-15.0) g/dL Hct 42.9 (37.0-47.0) % MCV 80.5 (80-100) fl MCH 27.8 (26-34) pg MCHC 34.5 (32-36) g/dl RDW 13.3 (11.5-14.5) % Plt Count 310 (150-375) k/mm3 MPV 9.6 (7.4-10.4) fl Immature Gran % (Auto) 0.3 (0-0.5) % Neut % (Auto) 66.5 (45.5-73.1) % Lymph % (Auto) 25.4 (18.3-44.2) % [place] % (Auto) 6.0 (2.6-8.5) % Eos % (Auto) 1.4 (0-4.4) % Baso % (Auto) 0.4 (0.2-1.2) % Lymph # (Auto) 2.72 (0.9-3.2) K/mm3 [place] # (Auto) 0.6 (0.1-0.6) K/mm3 Eos # (Auto) 0.2 (0-0.3) K/mm3 Baso # (Auto) 0.0 (0.0-0.1) K/mm3 Abs Immat Gran (auto) 0.03 (0.00-0.031) K/mm3 Absolute Neuts (auto) 7.1 H (1.3-6.7) K/mm3 Absolute Nucleated RBC 0.000 (0.0-0.012) K/mm3 Nucleated RBC % 0.0 (0.0-0.2) % Sodium 141 (137-145) mmol/L Potassium 3.6 (3.4-5.0) mmol/L Chloride 105 (98-107) mmol/L Carbon Dioxide 24 (22-30) mmol/L Anion Gap 12 (4-12) mmol/L BUN 11 (7-17) mg/dL Creatinine 0.90 (0.7-1.0) mg/dL Estim Creat Clear Calc 90 ml/min Estimated GFR > 60 (59 - ) Glucose 109 (65-110) mg/dL Calcium 9.2 (8.4-10.2) mg/dL Total Bilirubin 1.1 (0.2-1.3) mg/dL AST 45 H (14-36) U/L ALT 80 H (6-35) U/L Alkaline Phosphatase 108 (38-126) U/L Total Protein 8.0 (6.3-8.2) g/dL Albumin 4.7 (3.5-5.1) g/dL Lipase 107 (23-300) U/L Urine Color Yellow (Yellow) Urine Appearance Clear (Clear) Urine pH 7.0 (5.0-9.0) Ur Specific [place] 1.004 (1.001-1.035) Urine Protein Negative (Negative) mg/dL Urine Glucose (UA) Negative (Negative) mg/dL Urine Ketones Negative (Negative) mg/dL Ur Blood (Man) Negative (Negative) Urine Nitrate Negative (Negative) Urine Bilirubin Negative (Negative) Urine Urobilinogen 0.2 (<2.0) mg/dL Leukocyte Esterase Rfl Negative (Negative) MERCEDES/UL POC Urine HCG, Qual Negative (Negative) Discharge Plan Discharge Clinical Impression: Abdominal pain Patient Disposition: Home, Self-Care Condition: Stable Instructions: Antibiotic Form, Abdominal Pain (ED) Prescriptions: No Action ferrous gluconate 324 mg (38 mg iron) tablet 324 mg PO BID escitalopram oxalate 5 mg tablet 5 mg PO DAILY Follow-up/Referrals: Ramon,Annette Owen APRN [Primary Care Provider] - Time of Disposition: 21:51
[2024-03-10 20:29] VITALS: BP 121/72; PULSE 117; RESP 16; TEMP 36.6; O2SAT 100
[2024-03-10 21:55] VITALS: BP 125/86; PULSE 82; RESP 16; TEMP 36.6; O2SAT 100
== END 2024-03-10 22:03 | disposition home or self-care (01) ==
PROVIDERS: Physician Assistant; Emergency Provider Emergency Medicine; PCP Nurse Practitioner Family
DX: R10.9 Unspecified abdominal pain (principal); E28.2 Polycystic ovarian syndrome
CPT/HCPCS: 36415; 74177; 76856; 80053; 81003; 81025; 83690; 85025; 99284; Q9967

== ENCOUNTER 2024-10-15 14:27 | Outpatient (CLI) | payer OTHER, SELFPAY ==
--- NOTE | ~2024-10-15 | US_ITS ---
Pelvic ultrasound EXAM: PELVIC ULTRASOUND HISTORY: suprapubic abdominal pain COMPARISON: 03/10/2024. FINDINGS: UTERUS: 8.6 x 3.3 x 4.6 cm. The uterus is anteverted and anteflexed. The endometrial complex measures 3.6 mm. RIGHT OVARY: The right ovary is increased in size measuring 4.6 x 2.7 x 2.4 cm, yielding a volume of 16.1 mL Dopplerable flow is identified. Multiple follicles detected within the ovary, consistent with patient's history of polycystic ovarian syndrome. LEFT OVARY: The left ovary is increased in size measuring 3.2 x 4.4 x 3.1 cm, yielding a volume of 23 mL. Dopplerable flow is identified. Multiple follicles detected within the ovary, consistent with patient's history of polycystic ovarian syndrome. No free fluid is identified within the pelvis. IMPRESSION: Findings consistent with patient's history of polycystic ovarian syndrome. No additional pathology is appreciated. Reviewed, dictated and finalized at location A.
--- OUTSIDE RECORDS SUMMARY | 2024-10-15 16:28 | XMS_ITS | Referral Summary ---
Author Organization [facility] Address [address] [place] [address] Care Team Providers Care Electro Mechanical Technologist Name Role Phone Annette Navarro NP Primary Care Provider [phone] Encounters Date Type Department Care Team Description 10/07/2024 Results Follow-Up [facility] Gastroenterology at [address] [phone] Jacklyn Alonso PA Hepatic function panel, [id number] n, Tumor Marker 10/02/2024 4:00 PM CDT Office Visit [facility] Primary Care at [address] [phone] David Clark MD Suprapubic abdominal pain (Primary Dx); Other back pain, unspecified chronicity 10/01/2024 11:15 AM CDT Lab [address] Hepatic steatosis; Elevated LFTs 09/23/2024 Telephone [facility] Gastroenterology at [address] [place] [phone] Jovita [facility] 08/11/2024 Telephone [facility] Gastroenterology at [address], [place] [phone] Arianna Pulido from Last 3 Months Allergies Active Allergy Reactions Criticality Noted Date Comments Guaifenesin Other (See comments) Low 04/24/2023 Made her feel drugged Medications spironolactone (ALDACTONE) 100 mg tablet Take 1 tablet (100 mg total) by mouth 2 (two) times a day 2 Active metFORMIN XR (GLUCOPHAGE XR) 500 mg 24 hr tablet Take 1 tablet (500 mg total) by mouth 2 (two) times a day 2 Active dicyclomine (BENTYL) 20 mg tablet Take 1 tablet (20 mg total) by mouth 4 (four) times a day as needed (abdominal cramping) 120 tablet 2 3 Active Additional Information Patient not taking.Reported on 10/02/2024 FE 05/19, , 1 mg-20 mcg (21)/75 mg (7) per tablet Take 1 tablet by mouth daily 3 Active ferrous gluconate 324 mg (38 mg of elemental iron) tablet Take 1 tablet (324 mg total) by mouth 2 (two) times a day 4 Active omeprazole (PriLOSEC) 20 mg capsule Take 1 capsule (20 mg total) by mouth daily as needed (GERD) 60 capsule 1 4 Active Additional Information Patient not taking.Reported on 10/02/2024 hydrOXYzine (ATARAX) 10 mg tablet Take 1 tablet (10 mg total) by mouth 3 (three) times a day as needed for anxiety 30 tablet 1 4 Active Additional Information Patient not taking.Reported on 10/02/2024 norelgestromin-et hin.estradioL (ORTHO EVRA) 150-35 mcg/24 hrIndications:Pre gnancy Contraception Place 1 patch on the skin once a week Apply 1 patch each week for 3 weeks, then remove for 1 week. Active escitalopram (LEXAPRO) 5 mg tablet Take 1 tablet (5 mg total) by mouth daily 90 tablet 1 4 Active Active Problems Problem Noted Date Diagnosed Date Iron deficiency 05/12/2023 Menorrhagia with regular cycle 05/12/2023 Microcytosis 04/24/2023 Neutrophilia 04/24/2023 Chronic hiccups 12/15/2021 Overview (12/15/2021): Added automatically from request for surgery [id number] Epigastric abdominal pain 12/15/2021 Overview (12/15/2021): Added automatically from request for surgery [id number] Assessment & Plan (07/02/2023 4:14 PM MEDICINE AIDE): Has worsened, restart Omeprazole 20 mg daily for now. Burping 12/15/2021 Overview (12/15/2021): Added automatically from request for surgery [id number] Abdominal cramping 12/15/2021 Overview (12/15/2021): Added automatically from request for surgery [id number] Pharyngoesophageal dysphagia 12/15/2021 Overview (12/15/2021): Added automatically from request for surgery [id number] Anemia 07/24/2021 Dehydration 07/23/2021 Assessment & Plan (07/23/2021 6:15 PM CDT): Result of mononucleosis infection. Will continue IV fluids for now. Will monitor diet with patient currently on regular diet. Continue to follow labs with kidney function normal. Gammaherpesviral mononucleosis without complicat ion 07/23/2021 Assessment & Plan (09/15/2021 3:07 PM CDT): Lab work much improved, WBC and liver enzymes have returned to normal. Pt has much improvement and other than occasional fatigue, has been feeling mostly back to normal. Assessment & Plan (08/04/2021 1:42 PM CDT): Lab work improved, liver enzymes and WBC still increased but trending in the correct direction. Continue increasing fluids, and especially rest; no rough housing, sports or PE x 1 month. If severe abdominal pain, pt knows to go to ER. Patient has GI appt on 08/10. Repeat labs and follow up in 6 weeks, sooner if needed Assessment & Plan (07/29/2021 11:21 AM CDT): Patient educated on length of recovery time, typical course of resolution, precautions given her spleen, liver enzyme elevation w/ mono. Will recheck CBC and CMP on Sunday. Patient and patient's mother prefer patient to see GI for the abdominal belching and hepatitis as some of the GI complaints have been occurring prior to her [place] dx. Referral placed. Assessment & Plan (07/23/2021 6:17 PM CDT): Clinical picture consistent with mononucleosis. [place] screen positive. LFTs elevated. CT abdomen/pelvis with retroperitoneal lymph nodes. RUQ ultrasound with hepatomegaly with hepatic steatosis and gallbladder sludge. Continue symptomatic treatment. Hepatitis 07/23/2021 Assessment & Plan (08/04/2021 1:42 PM CDT): Lab work improved, liver enzymes and WBC still increased but trending in the correct direction. Continue increasing fluids, and especially rest; no rough housing, sports or PE x 1 month. If severe abdominal pain, pt knows to go to ER. Patient has GI appt on 08/10. Assessment & Plan (07/29/2021 12:23 PM CDT): Liver enzymes and WBC worsened from hospital discharge to ER visit on 07/27. Discussed liver enzymes likely elevated due to mono but want to see them trending down. Will repeat labs on Sunday. Patient and patient's mother would like to see GI for this and also due to other abdominal complaints that started prior to mono dx. Referral placed. Assessment & Plan (07/23/2021 6:18 PM CDT): Most likely result of mononucleosis infection. ALT 343 with AST 207. Hepatitis panel negative. RAPHAEL ordered and pending. Imaging results as noted above. Will follow LFTs. Anticipate will remain elevated beyond hospitalization. Pulmonary nodules 07/23/2021 Assessment & Plan (07/23/2021 6:19 PM CDT): Scattered small pleural pulmonary nodules seen on lower chest on CT abdomen. One noted to be 4 mm. No respiratory symptoms at this time. Most likely benign. Can follow as an outpatient. Hyponatremia 07/23/2021 Assessment & Plan (07/23/2021 6:17 PM CDT): Sodium 134 today. Most likely result of dehydration. Will continue to monitor with rehydration with IV fluids. Urticaria 03/13/2020 Pruritic dermatitis 03/13/2020 Class 1 obesity due to excess calories in adult 10/29/2019 Assessment & Plan (09/13/2022 12:36 PM CDT): Patient not on any diet Family history of diabetes. Plan: Informed patient about insulin resistance with PCOS Patient to follow ADA diet to help with weight and avoid Diabetes. Recommended low carb diet . Annual screening for diabetes. Assessment & Plan (10/29/2019 10:03 AM CDT): Healthy, low carbohydrate lifestyle and exercise for 150min/week recommended Anxiety Assessment & Plan (02/15/2024 12:17 PM CDT): Pt has not been taking Lexapro, but will consider restarting because side effects go away after consistent use and she feels better taking it. Counseling resources also provided. Assessment & Plan (08/16/2023 3:48 PM CDT): Improvement noted on the Lexapro 5 mg daily, will stay at current dosage and patient to reach out if needed. Has only had 1 panic attack since last visit and was able to calm herself. Assessment & Plan (07/02/2023 4:13 PM MEDICINE AIDE): Has worsened, restart Lexapro 5 mg daily x 2 weeks and then increase to 10 mg daily. Hydroxyzine as needed. Education provided. Counseling resources provided. Follow up in 6 weeks, sooner if needed. Assessment & Plan (12/26/2022 9:07 AM CDT): Overall doing ok since mother's passing, discussed grieving and panic attacks. Patient continuing Lexapro 5 mg, reach out sooner for possible adjustment. Counseling not a bad idea either. Assessment & Plan (07/23/2021 6:19 PM CDT): Known chronic issues. Will continue SSRI while here. PCOS (polycystic ovarian syndrome) Assessment & Plan (12/26/2022 9:05 AM CDT): Following with CAD INTER[facility], currently taking Metformin. Discussed GLP-1 therapy, will have patient see doll wigs hackler and get behavioral habits down Has ultrasound scheduled with CAD INTERN. Assessment & Plan (09/13/2022 12:34 PM CDT): Diagnosed in 2019 Now periods are regular on BCP Mild excess hair on upper lip Labs on 05/20/22 Normal Testosterone of 28 Insulin of 23 No diabetes A1c 5.2% Plan: The diagnosis and prognosis reviewed with patient Increase Metformin to 1000 mg /day. Continue on BCP per her Physical Therapy Director Patient to work on weight loss with diet and exercise. Check TFT. Assessment & Plan (07/23/2021 6:20 PM CDT): No acute issue. Will continue home OCP and spironolactone. Sepsis without acute organ dysfunction Assessment & Plan (07/23/2021 6:26 PM CDT): Patient did meet criteria on presentation with tachycardia and leukocytosis. Result of infection with mononucleosis. Urinalysis negative. COVID-19, influenza and RSV negative. Continue treatment of dehydration and mononucleosis as noted above. Immunizations Immunization Administration Dates Next Due DTaP 08/06/2006, 3,01/27/2002,11/25,2001 HPV9 10/26/2016,10/25/2015 Hep A, Pediatric 11/14/2017,03/19/2014, 3 Hep B / HiB 01/27/2002,2001 Hep B, Adolescent or Pediatric 2001 HiB 11/25/2002,2001 IPV 08/06/2006, 3,2001,09/26 Influenza LAIV (Nasal) 03/19/2014,02/25/2013 Influenza, Quadrivalent, Spl it, Preservative Free, Intramuscular 03/06/2019 Influenza, Split 02/19/2009 Influenza, Unspecified 12/26/2022(Deferr ed: Patient Refused),04/30/2022(Deferred: Patient Refused),06/02/2021(Deferred: Patient Refused),04/30/2021(Deferred: Patient Refused),01/29/2020,01/28/2019, 018 MMR 07/29/2002 MMRV 08/06/2006 Meningococcal ACWY, Unspecified 10/29/2012 Meningococcal B, OMV (Bexsero) 12/10/2019 Meningococcal Conjugate (Menveo) 11/14/2017 PPD TEST 12/26/2022 Pneumococcal Conjugate 7-Valent 11/25/2002,05/05,2001 Tdap 12/26/2022,10/29/2012 Varicella 07/29/2002 Social History Tobacco Use Types Packs/Day Years Used Date Smoking Tobacco: Never Passive Smoke Exposure: Never Smokeless Tobacco: Never Tobacco Cessation:Counseling Given: Not Answered Alcohol Use Standard Drinks/Week Comments Not Currently 0 (1 standard drink = 0.6 oz pur e alcohol) AUDIT-C Answer Date Recorded Q1: How often do you have a drink containing alc ohol? Monthly or less 03/16/2023 Average Number of Drinks Not on file 023 Frequency of Binge Drinking Not on file 02/28 PHQ-2 Answer Date Recorded PHQ-2 Total Score (If total score is 3 or more points, staff should administer the PHQ-9) 0 10/02/2024 Comments No Sex and Gender Information Value Date Recorded Sex Assigned at Not on file Legal Sex Female 12:49 PM MEDICINE AIDE Gender Identity Not on file Sexual Orientation Not on file Last Filed Vital Signs Vital Sign Reading Time Taken Comments Blood Pressure 134/66 10/02/2024 3:58 PM CDT Pulse 96 10/02/2024 3:58 PM CDT Temperature 36.7 C (98.1 F) 10/02/2024 3:58 PM CDT Respiratory Rate 18 10/02/2024 3:58 PM CDT Oxygen Saturation 99% 10/02/2024 3:58 PM CDT Inhaled Oxygen Concentration - - Weight 84.4 kg (186 lb) 10/02/2024 3:58 PM CDT Height 157.5 cm (5' 2) 10/02/2024 3:58 PM CDT Body Mass Index 34.02 10/02/2024 3:58 PM CDT Plan of Treatment Not on file Procedures Procedure Name Priority Date/Time Associated Diagnosis Comments POCT URINALYSIS DIPSTICK Routine 10/02/2024 4:09 PM CDT Other back pain, unspecified chronicity [id number] , TUMOR MARKER Routine 10/01/2024 11:16 AM CDT Hepatic steatosis Elevated LFTs HEPATIC FUNCTION PANEL Routine 10/01/2024 11:16 AM CDT Hepatic steatosis Elevated LFTs HEPATITIS PANEL, ACUTE Routine 12/15/2021 11:43 AM CDT Hepatic steatosis from Last 3 Months or Most Recently Relevant to Health Maintenance Results * POCT urinalysis dipstick (10/02/2024 4:09 PM CDT) Color, Urine, POC Colorless Clarity, ur, POC Clear Clear Glucose, ur, POC Negative Negative Bilirubin, ur, POC Negative Negative Ketones, ur, POC Negative Negative Specific [place], POC 1.005 1.003 - 1.030 Blood, ur, POC Negative Negative pH, ur, POC 6.0 5.0 - 8.0 Protein, ur, POC Negative Negative Urobilinogen, urine, POC 0.2 0.2 - 1.0 mg/dL Nitrite, ur, POC Negative Negative Leukocytes, ur, POC Negative Negative Lot Number [id number] Comment:[id number] Urine 10/02/2024 4:09 PM CDT David Clark MD POINT OF CARE TEST ORDERABL ES Final Result * [id number], Tumor Marker (10/01/2024 11:16 AM CDT) alpha Fetoprotein 3.3 <=8.3 ng/mL Comment: Interpretive Data The Stevenson AFP assay procedure was used. Results from different manufacturers or methods may not be comparable. Serial testing should be performed using the same method. 0-1 month. AFP concentrations may reach or exceed 100,000 ng/mL after depending on gestational age and weight. 1-3 months 50 1000 ng/ml 3-6 months 10 500 ng/ml 6-12 months 3.0 100 ng/ml >1 year 0.0 8.3 ng/ml References Robert Cason et al. J. Ped Surg 1978;13:155-156 Gala Partida et al. Clin Chem Lab Med 2018;57:783-797 Amanda Lewis et al. Clin Chem 2014;8122-6030. Current interpretive data was last revised 2022. Testing performed by: [facility], [address] [place]., [address] Blood 10/01/2024 11:1 6 AM CDT 10/01/2024 6:20 PM CDT Jacklyn HOLLAND LAB BLOOD ORDERABLES Fin al Result Performing Organization Address City/[facility] Co de Phone Number [facility] ([place]) [address] [facility] Department [place] [address] * Hepatic function panel (10/01/2024 11:16 AM CDT) Bilirubin, total 0.9 0.1 - 1.2 mg/dL Bilirubin, direct 0.2 0.1 - 0.3 mg/dL [facility] ([place]) Protein, pl 7.3 6.5 - 8.5 g/dL [facility] ([place]) Albumin 4.3 3.5 - 5.0 g/dL [facility] ([place]) Alk phos 115 40 - 130 Units/L [facility] ([place]) ALT 11 7 - 45 Units/L [facility] ([place]) AST 22 10 - 45 Units/L [facility] ([place]) Blood 10/01/2024 11:1 6 AM CDT 10/01/2024 2:47 PM CDT Jacklyn HOLLAND LAB BLOOD ORDERABLES Fin al Result Performing Organization Address City/[facility]/ZIP Co de Phone Number [facility] ([place]) [address] [facility] Department [place] [address] * Hepatitis panel, acute (12/15/2021 11:43 AM CDT) Hep A IgM Nonreactive Nonreactive [facility] ([place]) Comment: Interpretive Data: If Hep A IgM Ab is reported as Equivocal, a new sample should be drawn in two weeks for testing. Current interpretive data was last revised on 19. Testing performed by: [address] [address] Hep B core IgM Nonreactive Nonreactive C ERNER CUR[facility] ([place]) Comment: Interpretive Data If HepB Core IgM Ab is reported as Equivocal, a new sample should be drawn in two weeks for testing. Current interpretive data was last revised on 19. Testing performed by: [address] [address] Hep C Ab Nonreactive Nonreactive [facility] ([place]) Comment: Interpretive Data Nonreactive: Antibodies to HCV not detected. Does NOT exclude the possibility of recent exposure to HCV. Equivocal: Equivocal for HCV antibodies. Supplemental molecular testing will be automatically performed to determine infection status in accordance with current CDC screening recommendations. Reactive: Positive for HCV antibodies. This may represent current or past HCV infection. Supplemental molecular testing will be automatically performed to determine current infection status in accordance with current CDC screening recommendations. Interpretive data was last revised on 2019. Testing performed by: [address] [address] HepBsAg Nonreactive Nonreactive [facility] ([place]) Comment:Testing performed by : [address] [address] Blood 12/15/2021 11:4 3 AM CDT 12/15/2021 8:00 PM CDT us Jacklyn HOLLAND LAB MICROBIOLOGY - GENER AL ORDERABLES Final Result [facility] ([place]) [address] [facility] Department [place] [address] from Last 3 Months or Most Recently Relevant to Health Maintenance Insurance [facility] Advance Directives For more information, please contact: [phone] * Full Code (Latest Code Status on File) Date Activated Date Inactivated Comments 03/13/2022 11:59 AM 03/13/2022 6:07 PM * Full Code Date Activated Date Inactivated Comments 03/13/2022 11:58 AM 03/13/2022 11:59 AM * Full Code Date Activated Date Inactivated Comments 07/23/2021 3:05 PM 07/24/2021 6:59 PM Care Teams Electro Mechanical Technologist Relationship Specialty Start Date End Date Annette Navarro NP [address] [facility] [address] [place] [address] PCP - General Family Medicine 04/01/21
--- OUTSIDE RECORDS SUMMARY | 2024-10-15 16:28 | XMS_ITS | Clinical Summary ---
Author Organization [facility] Address [address] [place] [address] Care Team Providers Care Property Technician Name Role Phone Annette Navarro INTEGRATED PROGRAM TEACHER Primary Care Provider Allergies Active Allergy Reactions Criticality Noted Date [...] (12/15/2021): Added automatically from request for surgery [id number] Epigastric abdominal pain 12/15/2021 Overview (12/15/2021): Added automatically from request for surgery [id number] Assessment & Plan (07/02/2023 4:14 PM REHABILITATION SERVICES COORDINATOR): Has worsened, restart Omeprazole 20 mg daily for now. Burping 12/15/2021 Overview (12/15/2021): Added automatically from request for surgery [id number] Abdominal cramping 12/15/2021 Overview (12/15/2021): Added automatically from request for surgery [id number] Pharyngoesophageal dysphagia 12/15/2021 Overview (12/15/2021): Added automatically from request for surgery [id number] Anemia 07/24/2021 Dehydration 07/23/2021 Assessment & Plan [...] complaints have been occurring prior to her [place] dx. Referral placed. Assessment & Plan (07/23/2021 6:17 PM CDT): Clinical picture consistent with mononucleosis. [place] screen positive. LFTs elevated. CT abdomen/pelvis with [...] herself. Assessment & Plan (07/02/2023 4:13 PM REHABILITATION SERVICES COORDINATOR): Has worsened, restart Lexapro 5 mg daily [...] Plan (12/26/2022 9:05 AM CDT): Following with [facility] GLUER, currently taking Metformin. Discussed GLP-1 therapy, will have patient see ground school instructor and get behavioral habits down Has ultrasound scheduled with [facility]ICA WASHER GLUER. Assessment & Plan (09/13/2022 12:34 PM CDT): Diagnosed in 2019 Now periods are regular on BCP Mild excess hair on upper lip Labs on 05/20/22 Normal Testosterone of 28 Insulin of 23 No diabetes A1c 5.2% Plan: The diagnosis and prognosis reviewed with patient Increase Metformin to 1000 mg /day. Continue on BCP per her Manager English Patient to work on weight loss with [...] of dehydration and mononucleosis as noted above. Encounters Date Type Department Care Team Description 10/07/2024 Results Follow-Up [facility] Gastroenterology at [address] [place] [address] Jacklyn Alonso PA Hepatic function panel, Kmvaf-[id number] n, Tumor Marker 10/02/2024 4:00 PM CDT Office Visit [facility] Primary Care at [address] [phone] David Clark MD Suprapubic abdominal pain (Primary Dx); Other back pain, unspecified chronicity 10/01/2024 11:15 AM CDT Lab [address] Hepatic steatosis; Elevated LFTs 09/23/2024 Telephone [facility] Gastroenterology at [address] [place] [address] Jovita [facility]ad [facility] 08/11/2024 Telephone [facility] Gastroenterology at [address] [place] [phone] Arianna Pulido from Last 3 Months Immunizations Immunization Administration Dates Next Due DTaP [...] Conjugate 7-Valent 11/25/2002,05/05,2001 Tdap 12/26/2022,10/29/2012 Varicella 07/29/2002 Surgical History Surgery Date Site/Laterality Comments HERNIA REPAIR 04/30/2005 - 04/29/2006 TONSILLECTOMY AND ADENOIDECTOMY 04/30/2004 - 04/29/2005 INGUINAL HERNIA REPAIR 04/30/2021 - 04/29/2022 Medical History Medical History Date Comments Ptosis Anxiety GERD (gastroesophageal reflux disease) Family History Medical History Relation Name Comments Diabetes Father Glo Pro Breast cancer Mother Mell Pro Hypertension Mother Mell Pro Relation Name Status Comments Father Glo Pro Mother Mell Pro Alive Social History Tobacco Use Types Packs/Day Years [...] on file Legal Sex Female 12:49 PM REHABILITATION SERVICES COORDINATOR Gender Identity Not on file Sexual Orientation Not on file Obstetrics History Last Filed Vital Signs Vital Sign Reading [...] 10/02/2024 3:58 PM CDT Plan of Treatment Health Maintenance Due Date Last Done Comments Cervical Cancer Screening 2001 Chlamydia and Gonorrhea (GC/ CT) Screening 2001 Pneumococcal vaccine <65 (1 of 2 - PPSV23) 01/20/2003 11/25/2002, 05/05/2002, 2001 Meningococcal B Vaccine (2 o f 2 - Bexsero SCDM 2-dose series) 06/11/2020 12/10/2019 Zoster Vaccine (1 of 2) 2020 Covid-19 Vaccine (3 - Pfizer risk series) 09/14/2020 08/17/2020, 07/27/2020 Regular Well Visit/Exam 18-64 12/27/2023, 11/17/2020, 10/29/2019 Influenza Vaccine (Season Ended) 2024 01/29/2020, 03/06/2019, 01/28/2019, Additional history exists Depression Screening 10/02/2025 10/02/2024, 02/15/2024, 08/16/2023, Additional history exists DTaP/Tdap/Td Vaccine (8 - Td or Tdap) 12/26/2032 12/26/2022, 10/29/2012, 08/06/2006, Additional history exists Varicella Vaccines Completed 08/06/2006, 07/29/2002 HPV Vaccines Completed 10/26/2016, 10/25/2015 Hepatitis C Screening Completed 12/15/2021 , 08/01/2021, 07/23/2021 Procedures Procedure Name Priority Date/Time Associated Diagnosis Comments POCT URINALYSIS DIPSTICK Routine 10/02/2024 4:09 PM CDT Other back pain, unspecified chronicity [id number] , TUMOR MARKER Routine 10/01/2024 11:16 AM [...] Negative Ketones, ur, POC Negative Negative Specific [place], POC 1.005 1.003 - 1.030 Blood, ur, POC Negative Negative pH, ur, POC 6.0 5.0 - 8.0 Protein, ur, POC Negative Negative Urobilinogen, urine, POC 0.2 0.2 - 1.0 mg/dL Nitrite, ur, POC Negative Negative Leukocytes, ur, POC Negative Negative Lot Number [id number] Comment:[id number] Urine 10/02/2024 4:09 PM CDT David Clark MD POINT OF CARE TEST ORDERABL ES Final Result * [id number], Tumor Marker (10/01/2024 11:16 AM CDT) alpha [...] >1 year 0.0 8.3 ng/ml References Robert Y. et al. J. Ped Surg 1978;13:155-156 Gala S. et al. Clin Chem Lab Med 2018;57:783-797 Amanda Lewis et al. Clin Chem 2014;1115-8698. Current interpretive data was last revised 2022. Testing performed by: [facility], [address] [place]., [address] Blood 10/01/2024 11:1 6 AM CDT 10/01/2024 6:20 PM CDT Jacklyn [facility] BLOOD ORDERABLES Fin al Result Performing Organization Address [facility] Co de Phone Number YURIDIA ELIAS ([place]) 1 [facility] [place] [address] * Hepatic function panel (10/01/2024 11:16 AM CDT) Bilirubin, total 0.9 0.1 - 1.2 mg/dL Bilirubin, direct 0.2 0.1 - 0.3 mg/dL [facility] ([place]) Protein, pl 7.3 6.5 - 8.5 g/dL [facility] ([place]) Albumin 4.3 3.5 - 5.0 g/dL [facility] ([place]) Alk phos 115 40 - 130 Units/L [facility] ([place]) ALT 11 7 - 45 Units/L [facility] ([place]) AST 22 10 - 45 Units/L [facility] ([place]) Blood 10/01/2024 11:1 6 AM CDT 10/01/2024 2:47 PM CDT Jacklyn [facility] BLOOD ORDERABLES Fin al Result Performing Organization Address City/[facility] Co de Phone Number YURIDIA ELIAS ([place]) 1 [facility] [address] [place] [address] * Hepatitis panel, acute (12/15/2021 11:43 AM CDT) Hep A IgM Nonreactive Nonreactive YURIDIA ELIAS ([place]) Comment: Interpretive Data: If Hep A IgM Ab is reported as Equivocal, a new sample should be drawn in two weeks for testing. Current interpretive data was last revised on 19. Testing performed by: [facility], [address] [place] [address]., [id number] Hep B core IgM Nonreactive Nonreactive C ERNER CURT ([place]) Comment: Interpretive Data If HepB Core IgM Ab is reported as Equivocal, a new sample should be drawn in two weeks for testing. Current interpretive data was last revised on 19. Testing performed by: [facility], [address] [place] [address]., [id number] Hep C Ab Nonreactive Nonreactive YURIDIA ELIAS [...] last revised on 2019. Testing performed by: [facility], [address] [place] [address]., [id number] HepBsAg Nonreactive Nonreactive YURIDIA ELIAS ([place]) Comment:Testing performed by : [address] [address] Blood 12/15/2021 11:4 3 AM CDT 12/15/2021 8:00 PM CDT us Jacklyn [facility] MICROBIOLOGY - GENER AL ORDERABLES Final Result YURIDIA CURT ([place]) 1 [facility] [place] [address] from Last 3 Months or Most Recently Relevant to Health Maintenance Insurance BLUE ACCESS DE BLUE ACCESS [employer] [address] [facility] Advance Directives For more information, please contact: [phone] * Full Code (Latest Code Status on File) Date Activated Date Inactivated Comments 03/13/2022 11:59 AM 03/13/2022 6:07 PM * Full Code Date Activated Date Inactivated Comments 03/13/2022 11:58 AM 03/13/2022 11:59 AM * Full Code Date Activated Date Inactivated Comments 07/23/2021 3:05 PM 07/24/2021 6:59 PM Care Teams Property Technician Relationship Specialty Start Date End Date Annette Navarro NP [address] [address] PCP - General Family Medicine 04/01/21
--- OUTSIDE RECORDS SUMMARY | 2024-10-15 16:28 | XMS_ITS | Clinical Summary ---
Author Organization [facility] Address [address] [place] [address] Phone Care Team Providers Care Outboard Motorboat Rigger Name Role Phone Annette Navarro APRN, SENIOR PAINTER Primary Care Provider [phone] Allergies Active Allergy Reactions Criticality Noted Date Comments Guaifenesin Er Other (see Comments) 04/24/2023 Made her feel drugged Medications Blisovi FE 05/19 1-20 MG-MCG Tablet 04/24/2023 Active pantoprazole (PROTONIX) 40 MG Tablet Delayed Response 01/08/2023 Active Escitalopram Oxalate 5 MG Tablet TAKE 1 TABLET(5 MG) BY MOUTH DAILY 08/21/2022 Active spironolactone (ALDACTONE) 100 MG Tablet Take 100 mg by mouth. 07/21/2021 Active metFORMIN (GLUCOPHAGE-XR) 500 MG TABLET SR 24 HR Take 500 mg by mouth. 03/15/2022 Active Simethicone (GAS-X PO) Take by mouth. Active ferrous gluconate 324 (38 Fe) MG Tablet Take 1 Tablet by mouth 2 times daily. 60 Tablet 3 05/03/2023 Active Active Problems Problem Noted Date Diagnosed Date Iron deficiency 05/12/2023 Menorrhagia with regular cycle 05/12/2023 Neutrophilia 04/24/2023 Microcytosis 04/24/2023 Family History Medical History Relation Name Comments Diabetes Father Cancer Maternal Grandfather Diabetes Maternal Grandfather Cancer Maternal Grandmother Breast Cancer Mother Diabetes Mother Hypertension Mother Cancer Paternal Grandmother Relation Name Status Comments Father Maternal Grandfather Maternal Grandmother Mother Paternal Grandmother Social History Tobacco Use Types Packs/Day Years Used Date Smoking Tobacco: Never Smokeless Tobacco: Never Tobacco Cessation:Counseling Given: Not Answered Alcohol Use Standard Drinks/Week Comments Never 0 (1 standard drink = 0.6 oz pur e alcohol) occasionally Comments Unknown Sex and Gender Information Value Date Recorded Sex Assigned at Not on file Legal Sex Female 12:03 PM APARTMENT GROUNDSKEEPER Gender Identity Not on file Sexual Orientation Not on file Last Filed Vital Signs Vital Sign Reading Time Taken Comments Blood Pressure 130/88 02/13/2024 1:56 PM CDT Pulse 84 02/13/2024 1:56 PM CDT Temperature 36.3 C (97.4 F) 02/13/2024 1:56 PM CDT Respiratory Rate 18 02/13/2024 1:56 PM CDT Oxygen Saturation 99% 02/13/2024 1:56 PM CDT Inhaled Oxygen Concentration - - Weight 88 kg (194 lb) 02/13/2024 1:56 PM CDT Height 157.5 cm (5' 2) 02/13/2024 1:56 PM CDT Body Mass Index 35.48 02/13/2024 1:56 PM CDT Plan of Treatment Health Maintenance Due Date Last Done Comments Hepatitis C Virus (HCV) Screening 2001 Meningococcal B Immunization (2 of 2 - Bexsero SCDM 2-dose series) 06/11/2020 12/10/2019 Pneumococcal Immunization Combined (1 of 2 - PCV) 2020 11/25/2002, 05/05/2002, 2001 SARS-COV-2 Immunization (3 - Pfizer risk series) 09/14/2020 08/17/2020, 07/27/2020 Pap Smear 2022 Influenza Immunization (Season Ended) 2024 01/29/2020, 03/06/2019, 01/28/2019, Additional history exists Respiratory Syncytial Virus (RSV) Immunization (Adult) (1 - 1-dose 75+ series) 2076 Hepatitis B Immunization Completed 002, 2001, 2001 Measles Mumps Rubella (MMR) Immunization Discontinued 08/06/2006, 07/29/2002 Polio (IPV) Immunization Discontinued 007, 11/25/2002, 2001, Additional history exists Varicella Immunization Discontinued 08/06/2006, 2002 Human Papillomavirus (HPV) Immunization Completed 10/26/2016, 10/25/2015 Hepatitis A Immunization Discontinued 018, 03/19/2014, 02/25/2013 Meningococcal Immunization (ACWY) Completed 11/14/2017, 10/29/2012 DTaP/Tdap/Td Immunization Discontinued 2022, 10/29/2012, 08/06/2006, Additional history exists TdaP Immunization Completed 12/26/2022, 10/29/2012 Rotavirus Immunization Aged Out No lo nger eligible based on patient's age to complete this topic Insurance MEDICAID [place] Care Teams Outboard Motorboat Rigger Relationship Specialty Start Date End Date Annette Navarro, RADIO MACHINIST, SENIOR PAINTER PCP - General Advanced Practice Nurse 04/09/23
--- OUTSIDE RECORDS SUMMARY | 2024-10-15 16:28 | XMS_ITS | Encounter Summary ---
Author Organization [facility] Address [address] [place] [address] Care Team Providers Care Chief Talent Officer Name Role Phone Annette Navarro NP Primary Care Provider [phone] Encounter Details Date Type Department Care Team (Latest Contact Info) Description 10/07/2024 Results Follow-Up [facility] Gastroenterology at [address] [place] [phone] Jacklyn Alonso PA [address] [place] [address] [address] [place] [address] Hepatic function panel, [id number] , Tumor Marker Social History Tobacco Use Types Packs/Day Years Used Date Smoking Tobacco: Never Passive Smoke Exposure: Never Smokeless Tobacco: Never Alcohol Use Standard Drinks/Week Comments Not Currently [...] on file Legal Sex Female 12:49 PM ADVERTISING COORDINATOR Gender Identity Not on file Sexual Orientation Not on file documented as of this encounter Plan of Treatment Not on file documented as of this encounter Visit Diagnoses Not on filedocumented in this encounter Care Teams Chief Talent Officer Relationship Specialty Start Date End Date Annette Navarro NP [address] [facility] [address] [place] [address] PCP - General Family Medicine 04/01/21 documented as of this encounter
== END 2024-10-15 14:28 | disposition home or self-care (01) ==
PROVIDERS: PCP Nurse Practitioner Family; Visit Provider Family Medicine
DX: R10.2 Pelvic and perineal pain (principal)
CPT/HCPCS: 76830

== ENCOUNTER 2025-01-14 15:24 | Outpatient (CLI) | payer OTHER, SELFPAY ==
--- NOTE | ~2025-01-14 | US_ITS ---
EXAMINATION: US pelvic complete DATE: 01/14/2025 16:25 INDICATION: Pelvic pain. TECHNIQUE: Multiple transabdominal sonographic images of the pelvis were obtained. COMPARISON: Ultrasound 10/15/2024 FINDINGS: The uterus measures 9.5 x 2.7 x 4.5 cm. There is no free fluid in the pelvis. The endometrial complex measures 4 mm in thickness. The right ovary measures 3.8 x 2.9 x 2.2 cm. The left ovary measures 4.3 x 2.6 x 3.1 cm. There is normal vascular flow in the ovaries. IMPRESSION: 1. Normal pelvis. Reviewed, dictated and finalized at location E. IMPRESSION: 1. Normal pelvis.
--- OUTSIDE RECORDS SUMMARY | 2025-01-14 16:12 | XMS_ITS | Clinical Summary ---
Author Organization [facility] Address [address] [place] [address] Phone Care Team Providers Care Medical Insurance Coding Specialist Name Role Phone Annette Navarro APRN, SUPERVISOR CONTACT LENS Primary Care Provider [phone] Allergies Active Allergy Reactions Criticality Noted Date [...] on file Legal Sex Female 12:03 PM PIE CUTTER Gender Identity Not on file Sexual Orientation [...] 08/17/2020, 07/27/2020 Pap Smear 2022 Influenza Immunization (#1) 12/29/202404/2019, 03/06/2019, 01/28/2019, Additional history exists Respiratory Syncytial [...] age to complete this topic Insurance MEDICAID [place] Care Teams Medical Insurance Coding Specialist Relationship Specialty Start Date End Date Annette Navarro, CONVERTIBLE POWER SHOVEL OPERATOR, SUPERVISOR CONTACT LENS PCP - General Advanced Practice Nurse 04/09/23
--- OUTSIDE RECORDS SUMMARY | 2025-01-14 16:12 | XMS_ITS | Encounter Summary ---
Author Organization [facility] Healthcare Address [address] [place] [address] Care Team Providers Care Real Estate Agency Principal Name Role Phone Annette Navarro NP Primary Care Provider [phone] Encounter Details Date Type Department Care Team (Latest Contact Info) Description 01/02/2025 Results Follow-Up [facility] Gastroenterology at [address] [place] [address] Jacklyn Alonso PA [address] [place] [address] [address] [place] [address] Lipase, Comprehensive metabolic panel, CBC with auto differential, Additional followed-up results: 2 Social History Tobacco Use Types Packs/Day Years Used Date Smoking Tobacco: Never Passive Smoke Exposure: Never Smokeless Tobacco: Never Alcohol Use Standard Drinks/Week Comments Not Currently 0 (1 standard drink = 0.6 oz pur e alcohol) AUDIT-C Answer Date Recorded Q1: How often do you have a drink containing alc ohol? 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
--- OUTSIDE RECORDS SUMMARY | 2025-01-14 16:12 | XMS_ITS | Clinical Summary ---
Author Organization [facility] Address [address] [place] [address] Care Team Providers Care Piece Maker Name Role Phone Annette Navarro NP Primary Care Provider [phone] Allergies Active Allergy Reactions Criticality Noted Date Comments Guaifenesin Other (See comments) Low 04/24/2023 Made her feel drugged Medications spironolactone (ALDACTONE) 100 mg tablet Take 1 tablet (100 mg total) by mouth 2 (two) times a day 07/22/19 22 Active metFORMIN XR (GLUCOPHAGE XR) 500 mg 24 hr tablet Take 1 tablet (500 mg total) by mouth 2 (two) times a day 03/15/20 22 Active dicyclomine (BENTYL) 20 mg tablet Take 1 tablet (20 mg total) by mouth 4 (four) times a day as needed (abdominal cramping) 120 tablet 2 06/27/19 23 Active Additional Information Patient not taking.Reported on 10/02/2024 Junel FE 05/19, 28, 1 mg-20 mcg (21)/75 mg (7) per tablet Take 1 tablet by mouth daily 12/02/19 23 Active ferrous gluconate 324 mg (38 mg of elemental iron) tablet Take 1 tablet (324 mg total) by mouth 2 (two) times a day 05/03/19 24 Active omeprazole (PriLOSEC) 20 mg capsule Take 1 capsule (20 mg total) by mouth daily as needed (GERD) 60 capsule 1 07/02/19 24 Active Additional Information Patient not taking.Reported on 10/02/2024 hydrOXYzine (ATARAX) 10 mg tablet Take 1 tablet (10 mg total) by mouth 3 (three) times a day as needed for anxiety 30 tablet 1 07/02/19 Active Additional Information Patient not taking.Reported on 10/02/2024 norelgestromin-e thin.estradioL (ORTHO EVRA) 150-35 mcg/24 hrIndications:Pr egnancy Contraception Place 1 patch on the skin once a week Apply 1 patch each week for 3 weeks, then remove for 1 week. Active sertraline (ZOLOFT) 25 mg tablet Take 1 tablet (25 mg total) by mouth daily 30 tablet 1 01/10/20 25 Active clonazePAM (KlonoPIN) 0.5 mg tablet Take 0.5 tablets (0.25 mg total) by mouth daily as needed for anxiety 10 tablet 01/10/20 25 Active escitalopram (LEXAPRO) 5 mg tablet Take 1 tablet (5 mg total) by mouth daily 90 tablet 1 02/15/20 24 2024 Discontinued Active Problems Problem Noted Date Diagnosed Date Iron deficiency 05/12/2023 Menorrhagia with regular cycle 05/12/2023 Microcytosis 04/24/2023 Neutrophilia 04/24/2023 Chronic hiccups 12/15/2021 Overview (12/15/2021): Added automatically from request for surgery [id number] Epigastric abdominal pain 12/15/2021 Overview (12/15/2021): Added automatically from request for surgery [id number] Assessment & Plan (07/02/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 Burping 12/15/2021 Overview (12/15/2021): Added automatically from request for surgery [id number] Abdominal cramping 12/15/2021 Overview (12/15/2021): Added automatically from request for surgery [id number] Pharyngoesophageal dysphagia 12/15/2021 Overview (12/15/2021): Added automatically from request for surgery [id number] Anemia 07/24/2021 Dehydration 07/23/2021 Assessment & Plan [...] complaints have been occurring prior to her [place] dx. Referral placed. Assessment & Plan (07/23/2021 6:17 PM CDT): Clinical picture consistent with mononucleosis. [place] screen positive. LFTs elevated. CT abdomen/pelvis with [...] for 150min/week recommended Anxiety Assessment & Plan (01/09/2025 1:06 PM CDT): Not at goal, has side effects with Lexapro. Discussed counseling in adjunct with medication and pt working on finding one that insurance accepts. Will start Sertraline 25 mg daily, education provided. Also will send 10 Clonazepam for prn use/panic attacks until Sertraline can take full effects. Pt to use cautiously and sparingly. Assessment & Plan (02/15/2024 12:17 PM CDT): [...] herself. Assessment & Plan (07/02/2023 4:13 PM STRIPPING MACHINE OPERATOR): Has worsened, restart Lexapro 5 mg daily [...] Plan (12/26/2022 9:05 AM CDT): Following with DIRECTOR GLOBAL, currently taking Metformin. Discussed GLP-1 therapy, will have patient see manager investment banking and get behavioral habits down Has ultrasound scheduled with DIRECTOR GLOBAL. Assessment & Plan (09/13/2022 12:34 PM CDT): Diagnosed in 2019 Now periods are regular on BCP Mild excess hair on upper lip Labs on 05/20/22 Normal Testosterone of 28 Insulin of 23 No diabetes A1c 5.2% Plan: The diagnosis and prognosis reviewed with patient Increase Metformin to 1000 mg /day. 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 Patient to work on weight loss with [...] Encounters Date Type Department Care Team Description 01/09/2025 10:00 AM CDT Telemedicine [facility] Primary Care at [address] [address] Annette Navarro NP Anxiety (Primary Dx) 01/02/2025 Results Follow-Up [facility] Gastroenterology at [address] [place] [phone] Jacklyn Alonso PA Lipase, Comprehensive metabolic panel, CBC with auto differential, Additional followed-up results: 2 01/01/2025 1:15 PM CDT Lab [address] Abdominal pain 12/31/2024 Telephone [facility] Gastroenterology at [address] [place] [phone] Arianna Pulido 10/20/2024 2:00 PM CDT Office Visit [facility] Gastroenterology at [address] [place] [phone] Jacklyn Alonso PA Hepatic steatosis (Primary Dx); Irritable bowel syndrome with constipation; Gastroesophageal reflux disease, unspecified whether esophagitis present 10/16/2024 Orders Only [facility] Primary Care at [address] [phone] David Clark MD Suprapubic abdominal pain from Last 3 Months Immunizations Immunization Administration [...] on file Legal Sex Female 12:49 PM STRIPPING MACHINE OPERATOR Gender Identity Not on file Sexual Orientation Not on file Obstetrics History Last Filed Vital Signs Vital Sign Reading Time Taken Comments Blood Pressure 122/70 10/20/2024 1:47 PM CDT Pulse 98 10/20/2024 1:47 PM CDT Temperature 36.7 C (98.1 F) 10/02/2024 3:58 PM CDT Respiratory Rate 18 10/02/2024 3:58 PM CDT Oxygen Saturation 99% 10/20/2024 1:47 PM CDT Inhaled Oxygen Concentration - - Weight 83.6 kg (184 lb 6.4 oz) 10/20/2024 1:47 P M CDT Height 157.5 cm (5' 2) 10/20/2024 1:47 PM CDT Body Mass Index 33.73 10/20/2024 1:47 PM CDT Plan of Treatment Health Maintenance Due Date Last Done Comments Cervical Cancer Screening 2001 Chlamydia and Gonorrhea (GC/ CT) Screening 2001 Pneumococcal vaccine <65 (1 of 2 - PPSV23, PCV20, or PCV21) 01/20/2003 11/25/2002, 05/05/2002, 2001 Meningococcal B Vaccine (2 o f 2 - Bexsero SCDM 2-dose series) 06/11/2020 12/10/2019 Zoster Vaccine (1 of 2) 2020 Covid-19 Vaccine (3 - Pfizer risk series) 09/14/2020 08/17/2020, 07/27/2020 Regular Well Visit/Exam 18-64 12/27/2023, 11/17/2020, 10/29/2019 Influenza Vaccine (#1) 2024 , 03/06/2019, 01/28/2019, Additional history exists Depression Screening 10/02/2025 10/02/2024, 02/15/2024, 08/16/2023, Additional history exists DTaP/Tdap/Td Vaccine (8 - Td or Tdap) 12/26/2032 12/26/2022, 10/29/2012, 08/06/2006, Additional history exists Varicella Vaccines Completed 08/06/2006, 07/29/2002 HPV Vaccines Completed 10/26/2016, 10/25/2015 Hepatitis C Screening Completed 12/15/2021 , 08/01/2021, 07/23/2021 Procedures Procedure Name Priority Date/Time Associated Diagnosis Comments EGFR Routine 01/01/2025 1:16 PM CDT Abdominal pain DIFFERENTIAL AUTO Routine 01/01/2025 1:1 6 PM CDT Abdominal pain CBC WITH AUTO DIFFERENTIAL Routine 01/01/2025 1:16 PM CDT Abdominal pain COMPREHENSIVE METABOLIC PANEL Routine 01/01/2025 1:16 PM CDT Abdominal pain LIPASE Routine 01/01/2025 1:16 PM CDT Abdominal pain HEPATITIS PANEL, ACUTE Routine 11:43 AM CDT Hepatic steatosis from Last 3 Months or Most Recently Relevant to Health Maintenance Results * eGFR (01/01/2025 1:16 PM CDT) eGFR >90 >=60 mL/min/1. 73 m2 Comment: Interpretive Data Reference Interval Normal >/= 90 mL/min/1.73m2 Mildly decreased* 60 - 89 mL/min/1.73m2 Mildly to moderately decreased 45 - 59 mL/min/1.73m2 Moderately to severely decreased 30 - 44 mL/min/1.73m2 Severely decreased 15 - 29 mL/min/1.73m2 Kidney Failure < 15 mL/min/1.73m2 *Relative to young adult level Estimated glomerular filtration rate is determined by the 2020 CKD-EPI equation recommended by the National Kidney Foundation (A Unifying Approach to GFR Estimation: Recommendations of the NKF-ASK Task Force on Reassessing the Inclusion of Race in Diagnosing Kidney Disease, JASN 2020). The CKD-EPI equation should not be used for patients with unstable renal function and has not been validated in children and those over 70. Current interpretive data was last reviewed 2021. Blood 01/01/2025 1:16 PM CDT 01/01/2025 4:20 PM CDT Jacklyn HOLLAND LAB BLOOD ORDERABLES Fin al Result [facility] ([place]) 1 [facility] Department [place] [address] * Differential, auto (01/01/2025 1:16 PM CDT) Neutrophil abs 6.29 1.50 - 6.50 K/cumm Imm gran abs 0.02 0.00 - 0.10 K/cumm [facility] ([place]) Lymphocyte abs 3.01 0.80 - 3.30 K/cumm [facility] ([place]) Monocyte abs 0.49 0.20 - 0.80 K/cumm [facility] ([place]) Eosinophil abs 0.07 0.00 - 0.50 K/cumm [facility] ([place]) Basophil abs 0.06 0.00 - 0.10 K/cumm [facility] ([place]) Neutrophil pct 63.3 % [facility] ([place]) Comment: Interpretive Data Percent cell count reference ranges are not reported, since discordance with absolute values may lead to misinterpretation of CBC data. Current Interpretive Data was last revised on 2017. Imm gran pct 0.2 % [facility] ([place]) Comment: Interpretive Data Percent cell count reference ranges are not reported, since discordance with absolute values may lead to misinterpretation of CBC data. Current Interpretive Data was last revised on 2017. Lymphocyte pct 30.3 % [facility] ([place]) Comment: Interpretive Data Percent cell count reference ranges are not reported, since discordance with absolute values may lead to misinterpretation of CBC data. Current Interpretive Data was last revised on 2017. Monocyte pct 4.9 % [facility] ([place]) Comment: Interpretive Data Percent cell count reference ranges are not reported, since discordance with absolute values may lead to misinterpretation of CBC data. Current Interpretive Data was last revised on 2017. Eosinophil pct 0.7 % [facility] ([place]) Comment: Interpretive Data Percent cell count reference ranges are not reported, since discordance with absolute values may lead to misinterpretation of CBC data. Current Interpretive Data was last revised on 2017. Basophil pct 0.6 % [facility] ([place]) Comment: Interpretive Data Percent cell count reference ranges are not reported, since discordance with absolute values may lead to misinterpretation of CBC data. Current Interpretive Data was last revised on 2017. Blood 01/01/2025 1:16 PM CDT 01/01/2025 4:20 PM CDT us Jacklyn HOLLAND LAB BLOOD ORDERABLES Fin al Result [facility] ([place]) [address] [facility] Department [place] [address] * (ABNORMAL) CBC with auto differential (01/01/2025 1:16 PM CDT) WBC 9.94(H) 3.80 - 9.90 K/cumm Hgb 14.6 11.9 - 15.5 g/dL [facility] ([place]) Hct 43.5 35.6 - 45.5 % [facility] ([place]) Plt 365 150 - 400 K/cumm [facility] ([place]) MPV 10.9 9.1 - 12.3 fL [facility] ([place]) RBC 5.28(H) 3.90 - 5.20 M/cumm [facility] ([place]) MCV 82.4 81.3 - 96.4 fL [facility] ([place]) MCH 27.7 27.1 - 33.3 pg [facility] ([place]) MCHC 33.6 32.3 - 35.7 g/dL [facility] ([place]) RDW CV 12.9 11.1 - 14.9 % [facility] ([place]) RDW SD 38.2 35.7 - 48.1 fL [facility] ([place]) NRBC abs 0.00 0.00 - 0.01 K/cumm [facility] ([place]) Blood 01/01/2025 1:16 PM CDT 01/01/2025 4:20 PM CDT Jacklyn HOLLAND LAB BLOOD ORDERABLES Fin al Result Performing Organization Address [facility]/ZIP Co de Phone Number [facility] ([place]) 1 [facility] [place] [address] * Lipase (01/01/2025 1:16 PM CDT) Pathologist [facility] Lipase 31 10 - 99 Units/L [facility] ([place]) Blood 01/01/2025 1:16 PM CDT 01/01/2025 4:20 PM CDT Jacklyn HOLLAND LAB BLOOD ORDERABLES Fin al Result Performing Organization Address [facility]/ZIP Co de Phone Number [facility] ([place]) [address] [facility] [place] [address] * Comprehensive metabolic panel (01/01/2025 1:16 PM CDT) Sodium 138 135 - 145 mmol/L [facility] Potassium, pl 3.5 3.3 - 4.9 mmol/L [facility] Chloride 103 97 - 110 mmol/L [facility] ([place]) CO2 22 22 - 32 mmol/L [facility] ([place]) Anion gap 13 2 - 15 mmol/L [facility] ([place]) BUN 8 6 - 25 mg/dL [facility] ([place]) Creatinine 0.87 0.60 - 1.10 mg/dL [facility] ([place]) Glucose 101 70 - 199 mg/dL [facility] ([place]) Comment: Interpretive Data Fasting glucose >/= 126 mg/dl is diagnostic for diabetes. Fasting is defined as no caloric intake for at least 8 hours. Fasting glucose between 100 mg/dl to 125 mg/dl is diagnostic of prediabetes. In a patient with classic symptoms of hyperglycemia or hyperglycemic crisis, a random glucose >/= 200 mg/dl is diagnostic for diabetes. In the absence of unequivocal hyperglycemia, results should be confirmed by repeat testing. The classification and Diagnosis of Diabetes Diabetes Care 202; 46: S19-S40. Current interpretive data was last revised 2022. Calcium 9.7 8.5 - 10.3 mg/dL [facility] ([place]) Bilirubin, total 0.8 0.1 - 1.2 mg/dL [facility] ([place]) Protein, pl 7.2 6.5 - 8.5 g/dL [facility] ([place]) Albumin 4.4 3.5 - 5.0 g/dL [facility] ([place]) Alk phos 84 40 - 130 Units/L [facility] ([place]) ALT 7 7 - 45 Units/L [facility] ([place]) AST 22 10 - 45 Units/L [facility] ([place]) Blood 01/01/2025 1:16 PM CDT 01/01/2025 4:20 PM CDT us Jacklyn HOLLAND LAB BLOOD ORDERABLES Fin al Result [facility] ([place]) 1 [facility] Department [place] [address] * Hepatitis panel, acute (12/15/2021 11:43 AM CDT) Hep A IgM Nonreactive Nonreactive [facility] ([place]) Comment: Interpretive Data: If Hep A IgM Ab is reported as Equivocal, a new sample should be drawn in two weeks for testing. Current interpretive data was last revised on 19. Testing performed by: [facility], [address] [place] [address]., [id number] Hep B core IgM Nonreactive Nonreactive [facility] ([place]) Comment: Interpretive Data If HepB Core IgM Ab is reported as Equivocal, a new sample should be drawn in two weeks for testing. Current interpretive data was last revised on 19. Testing performed by: [facility], [address] [place] [address]., [id number] Hep C Ab Nonreactive Nonreactive [facility] [...] last revised on 2019. Testing performed by: [facility], [address] [place] [address]., [id number] HepBsAg Nonreactive Nonreactive [facility] ([place]) Comment:Testing performed by : [facility], [address] [place] [address]., [id number] Blood 12/15/2021 11:4 3 AM CDT 12/15/2021 8:00 PM CDT Jacklyn HOLLAND LAB MICROBIOLOGY - GENER AL ORDERABLES Final Result [facility] ([place]) 1 [facility] Department [place] [address] from Last 3 Months or Most Recently Relevant to Health Maintenance Insurance [facility] [id number] [place] [address] [facility] Advance Directives For more information, please contact: [phone] * Full Code (Latest Code Status on File) Date Activated Date Inactivated Comments 03/13/2022 11:59 AM 03/13/2022 6:07 PM * Full Code Date Activated Date Inactivated Comments 03/13/2022 11:58 AM 03/13/2022 11:59 AM * Full Code Date Activated Date Inactivated Comments 07/23/2021 3:05 PM 07/24/2021 6:59 PM Care Teams Piece Maker Relationship Specialty Start Date End Date Annette Navarro NP [id number] [address] [place] [address] PCP - General Family Medicine 04/01/21
== END 2025-01-14 15:25 | disposition home or self-care (01) ==
PROVIDERS: PCP Nurse Practitioner Family
DX: R10.2 Pelvic and perineal pain (principal)
CPT/HCPCS: 76856

== ENCOUNTER 2025-01-17 16:20 | Emergency (ER) | payer OTHER, SELFPAY ==
--- NOTE | ~2025-01-17 | CT_ITS ---
EXAMINATION: CT abdomen pelvis w con DATE: 01/17/2025 22:09 INDICATION: Right lower quadrant abdominal pain. TECHNIQUE: Computed tomography (CT) of the abdomen and pelvis was performed with 100 mL Omnipaque 350 intravenous contrast. Automated exposure control and iterative reconstruction technique were employed. The dose-length product was 547.24 mGy-cm. COMPARISON: CT abdomen and pelvis 03/10/2024, pelvis ultrasound 01/14/2025 FINDINGS: The visualized portions of lung bases demonstrate mild atelectasis. No pleural effusion. The heart size is normal. No pericardial effusion. The liver, gallbladder, spleen, pancreas, adrenal glands, and kidneys are normal. The bladder is distended. There are no dilated loops of bowel. The appendix is normal. There are no pathologically enlarged lymph nodes. There is no free intraperitoneal fluid. The bones are unremarkable. IMPRESSION: 1. No etiology for the patient's symptoms. Reviewed, dictated and finalized at location E.
[2025-01-17 16:20] VITALS: BP 137/86; PULSE 108; RESP 18; TEMP 36.8; O2SAT 100
[2025-01-17 19:55] LABS: Add Urine Microscopic? YES; Appearance Urine Cloudy (Clear); Glucose Urine UA Negative (Negative); Leukocyte Esterase Ur 1+ LEU/UL (Negative); Need Manual Microscopic Reviewed; Nitrate Urine Negative (Negative); Non Pathogenic Casts 0-2; Specific Grav Ur 1.020 (1.001-1.035)
[2025-01-17 20:01] LABS: BEDSIDEPREGUCG Negative (Negative)
[2025-01-17 20:06] LABS: Hematocrit 44.4 % (37.0-47.0); Hemoglobin 15.0 g/dL (12.0-15.0); Immature Granulocyte Percent A 0.3 % (0-0.5); Lymphocytes Absolute Auto 3.83 K/mm3 (0.9-3.2); Mean Corpuscular HGB Conc 33.8 g/dl (32-36); Mean Corpuscular Hemoglobin 27.6 pg (26-34); Mean Corpuscular Volume 81.8 fl (80-100); Nucleated Red Blood Cells Absolute Auto 0.000 K/mm3 (0.0-0.012); Nucleated Red Blood Cells Perc 0.0 % (0.0-0.2); Platelet Count Result 345 k/mm3 (150-375); Red Blood Count 5.43 M/mm3 (4.2-5.4); White Blood Count 13.4 K/mm3 (4.5-10.0)
--- NOTE | 2025-01-17 20:21 | ED_ITS ---
HPI - Abdominal Pain General Chief Complaint: Abdominal Pain Stated Complaint: abd pain Time Seen by Provider: 01/17/25 19:31 Source: patient Mode of arrival: ambulatory Limitations: no limitations History of Present Illness HPI narrative: This is a 24 year old female that presents to the ER for right lower quadrant abdominal pain. Ongoing intermittently for several months. Reports the pain radiates to her right upper quadrant and right flank. Reports she has had some diarrhea. Denies fever, vomiting, dysuria, hematuria. Related Data Home Medications ?Medication ?Instructions ?Recorded ?Confirmed ?Last Taken ?Type ferrous gluconate 324 mg (38 mg 324 mg PO BID 05/09/23 03/10/24 Unknown History iron) tablet escitalopram oxalate 5 mg tablet 5 mg PO DAILY 4 03/10/24 Unknown History Allergies Allergy/AdvReac Type Severity Reaction Status Date / Time guaifenesin Allergy Unknown Unknown Verified 01/17/25 16:20 Review of Systems 2 Review of Systems: All systems reviewed & are unremarkable except as noted in HPI and below PMFSH Past Medical History Medical History History of PCOS Surgical History Surgical History History of hernia repair History of tonsillectomy Family History Family History Mother Family history non-contributory Social History Social History Smoking status: Never smoker Substance use: never Living arrangements: with family Gender identity (if verbalized by the patient): Female Spiritual care concerns: No Exam 2 Narrative: GENERAL: Well-appearing, well-nourished, and in no acute distress. HEAD: Normocephalic, atraumatic. EYES: EOMI. CHEST: Clear to auscultation. No respiratory distress. No wheezes rales or rhonchi HEART: Regular rate and rhythm. No murmur heard. Normal peripheral pulses. ABDOMEN: Soft, nontender, nondistended, normal active bowel sounds. EXTREMITIES: Normal range of motion. No edema. SKIN: Warm, dry, no rash. NEURO: No focal deficits. Alert and oriented x3. PSYCH: Normal mood and affect Course Course Emergency Course: Patient updated on workup and agrees with plan of care Vital Signs Vital signs: Vital Signs Temperature 98.2 F 01/17/25 16:20 Pulse Rate 108 H 01/17/25 16:20 Respiratory Rate 18 01/17/25 16:20 Blood Pressure 137/86 01/17/25 16:20 Pulse Oximetry 100 01/17/25 16:20 Oxygen Delivery Room Air 01/17/25 16:20 Temperature 98.2 F 01/17/25 16:20 Pulse Rate 108 H 01/17/25 16:20 Respiratory Rate 18 01/17/25 16:20 Blood Pressure 137/86 01/17/25 16:20 Pulse Oximetry 100 01/17/25 16:20 Oxygen Delivery Room Air 01/17/25 16:20 MDM - Abdominal Pain MDM Narrative Medical decision making narrative: Patient presents to the emergency department for right lower quadrant abdominal pain. Patient is afebrile and nontoxic appearing. Tachycardic upon arrival, this normalized with IV fluids. Metabolic panel with some evidence of dehydration, patient was hydrated with 2 L of fluids in the ER. Urine with white blood cells, also some squamous epithelial cells. This will be sent for culture. CT abdomen and pelvis showing bilateral ovarian follicles. No other acute findings. Patient did recently have a pelvic ultrasound 3 days ago which was normal. Patient is currently pain-free. She was updated on her workup and agrees with plan of care. She is to follow up provider. She was given warnings to return to the ER Differential Diagnosis Differential diagnosis: Likely acute appendicitis, calculus of kidney, diverticulitis and other (PCOS, endometriosis) Medical Records Attestation: I reviewed the patient's medical records. Medical records narrative: EXAMINATION: US pelvic complete DATE: 01/14/2025 16:25 INDICATION: Pelvic pain. TECHNIQUE: Multiple transabdominal sonographic images of the pelvis were obtained. COMPARISON: Ultrasound 10/15/2024 FINDINGS: The uterus measures 9.5 x 2.7 x 4.5 cm. There is no free fluid in the pelvis. The endometrial complex measures 4 mm in thickness. The right ovary measures 3.8 x 2.9 x 2.2 cm. The left ovary measures 4.3 x 2.6 x 3.1 cm. There is normal vascular flow in the ovaries. IMPRESSION: 1. Normal pelvis. Lab Data Attestation: I reviewed the patient's lab results. 01/17/25 19:52 01/17/25 19:52 Labs: Lab Results 01/17/25 01/17/25 01/17/25 Range/Units 19:30 19:52 19:59 WBC 13.4 H (4.5-10.0) K/mm3 RBC 5.43 H (4.2-5.4) M/mm3 Hgb 15.0 (12.0-15.0) g/dL Hct 44.4 (37.0-47.0) % MCV 81.8 (80-100) fl MCH 27.6 (26-34) pg MCHC 33.8 (32-36) g/dl RDW 12.7 (11.5-14.5) % Plt Count 345 (150-375) k/mm3 MPV 10.4 (7.4-10.4) fl Immature Gran % (Auto) 0.3 (0-0.5) % Neut % (Auto) 65.7 (45.5-73.1) % Lymph % (Auto) 28.6 (18.3-44.2) % Andrew % (Auto) 4.7 (2.6-8.5) % Eos % (Auto) 0.4 (0-4.4) % Baso % (Auto) 0.3 (0.2-1.2) % Lymph # (Auto) 3.83 H (0.9-3.2) K/mm3 Andrew # (Auto) 0.6 (0.1-0.6) K/mm3 Eos # (Auto) 0.1 (0-0.3) K/mm3 Baso # (Auto) 0.0 (0.0-0.1) K/mm3 Abs Immat Gran (auto) 0.04 H (0.00-0.031) K/mm3 Absolute Neuts (auto) 8.8 H (1.3-6.7) K/mm3 Absolute Nucleated RBC 0.000 (0.0-0.012) K/mm3 Nucleated RBC % 0.0 (0.0-0.2) % Sodium 138 (137-145) mmol/L Potassium 3.6 (3.4-5.0) mmol/L Chloride 103 (98-107) mmol/L Carbon Dioxide 21 L (22-30) mmol/L Anion Gap 14 H (4-12) mmol/L BUN 6 L D (7-17) mg/dL Creatinine 0.89 (0.7-1.0) mg/dL Estim Creat Clear Calc 84 ml/min Estimated GFR > 60 (59 - ) Glucose 93 (65-110) mg/dL Calcium 9.4 (8.4-10.2) mg/dL Total Bilirubin 1.5 H (0.2-1.3) mg/dL AST 30 (14-36) U/L ALT 27 (6-35) U/L Alkaline Phosphatase 106 (38-126) U/L Total Protein 8.3 H (6.3-8.2) g/dL Albumin 4.8 (3.5-5.1) g/dL Lipase 68 (23-300) U/L Urine Color Yellow (Yellow) Urine Appearance Cloudy H (Clear) Urine pH 6.5 (5.0-9.0) Ur Specific [place] 1.020 (1.001-1.035) Urine Protein Trace (Negative) mg/dL Urine Glucose (UA) Negative (Negative) mg/dL Urine Ketones 3+ H (Negative) mg/dL Ur Blood (Man) Negative (Negative) Urine Nitrate Negative (Negative) Urine Bilirubin Negative (Negative) Urine Urobilinogen 1.0 (<2.0) mg/dL Add Ur Microanalysis Reviewed Leukocyte Esterase Rfl 1+ H (Negative) MERCEDES/UL Urine RBC 11-20 H (0-2) /hpf Urine WBC 11-20 H (0-3) /hpf Ur Squamous Epith Cells Occasional (Few) /hpf Urine Bacteria 2+ H /hpf Urine Casts 0-2 POC Urine HCG, Qual Negative (Negative) Imaging Data Radiologist's impression: CT abdomen and pelvis: Enlarged bilateral ovaries which contain multiple follicles. Normal appendix Critical Care Time Critical Care Time Critical Care Time: No Discharge Plan Discharge Clinical Impression: Abnormal urinalysis Abdominal pain Qualifiers: Abdominal location: right lower quadrant Qualified Code(s): R10.31 - Right lower quadrant pain Patient Disposition: Home Condition: Stable Instructions: Abdominal Pain (ED) Additional Instructions: Return to the ER if you experience fever, abdominal pain with nausea and vomiting, you are unable to keep down liquids or solids, blood in the stool, pain or burning with urination, blood in the urine or any other symptoms that are concerning to you Take oral antibiotic as prescribed Follow up with your primary care doctor Patient Language: Persian Prescriptions: New nitrofurantoin monohyd/m-cryst [Macrobid] 100 mg capsule 100 mg PO Q12H 5 Days Qty: 10 0RF Rx Instructions: must administer with a meal/food No Action ferrous gluconate 324 mg (38 mg iron) tablet 324 mg PO BID escitalopram oxalate 5 mg tablet 5 mg PO DAILY Follow-up/Referrals: Ramon,Annette Owen, MEDICAL REFERRAL COORDINATOR [Primary Care Provider, Unknown]
[2025-01-17 20:23] LABS: Alanine Aminotransferase 27 U/L (6-35); Albumin Level 4.8 g/dL (3.5-5.1); Alkaline Phosphatase 106 U/L (38-126); Anion Gap 14 mmol/L (4-12); Aspartate Amino Transferase 30 U/L (14-36); Bilirubin,Total 1.5 mg/dL (0.2-1.3); Blood Urea Nitrogen 6 mg/dL (7-17); Calcium 9.4 mg/dL (8.4-10.2); Carbon Dioxide 21 mmol/L (22-30); Chloride 103 mmol/L (98-107); Estimated CRCL calculation 84 ml/min; Estimated Glomerular Filt Rate > 60; Glucose 93 mg/dL (65-110); Lipase 68 U/L (23-300); Potassium 3.6 mmol/L (3.4-5.0); Sodium 138 mmol/L (137-145); Total Protein 8.3 g/dL (6.3-8.2)
[2025-01-17] MEDS: SODIUM CHLORIDE 0.9% IV 1,000 ML 999 ML IV CONT (20:31)
[2025-01-17] MEDS: LACTATED RINGERS 1,000 ML 999 ML IV CONT (21:22)
[2025-01-18 01:36] VITALS: BP 131/90; PULSE 86; RESP 18; O2SAT 99
== END 2025-01-18 01:38 | disposition home or self-care (01) ==
PROVIDERS: Emergency Medicine; Emergency Provider Physician Assistant; PCP Nurse Practitioner Family
DX: R10.31 Right lower quadrant pain (principal); R82.998 Other abnormal findings in urine; E28.2 Polycystic ovarian syndrome
CPT/HCPCS: 36415; 74177; 80053; 81001; 81025; 83690; 85025; 87086; 96360; 99284; J7030; J7120; Q9967